=== PATIENT | female | born 1950 | race Caucasian/White ===

== ENCOUNTER 2017-05-29 16:57 | Emergency (ER) | payer OTHER ==
[~2017-05-29 16:57] MED LIST: LORazepam 2 MG/ML VIAL ONE
--- OUTSIDE RECORDS SUMMARY | 2017-05-29 16:59 | XMS REPORT | Clinical Summary ---
:[address] [facility] Address [address] [place] [address] Phone Care Team Providers Name Role Phone Unavailable Primary Care Provider Unavailable Allergies Active Allergy Reactions Severity Noted Date Comments Diphenhydramine Hcl Other (See Comments) High 08/29/2016 Unknown reaction Pentazocine Lactate Other (See Comments) High 08/29/2016 Hallucinations Current Medications Prescription Sig. Disp. Refills Start Date End Date Status atorvastatin Take 1 tablet 30 tablet 0 09/03/2016 09/03/2017 Active (LIPITOR) 10 MG (10 mg total) by tablet mouth nightly. acetaminophen-codeine Take 1 tablet by 30 tablet 0 09/03/2016 09/13/2016 (TYLENOL #3) 300-30 mouth every 4 mg per tablet (four) hours as needed for up to 10 days. Max Daily Amount: 6 tablets moxifloxacin (AVELOX) Take 1 tablet 10 tablet 0 09/03/2016 09/10/2016 400 mg tablet (400 mg total) by mouth daily for [address] 1 drop 3 mL 0 09/03/2016 09/10/2016 (VIGAMOX) 0.5 % into the right ophthalmic solution eye 6 (six) times daily for 7 days. Active Problems Problem Noted Date Eye infection, right 08/30/2016 Dementia 08/30/2016 Keratitis, right 08/30/2016 Hypokalemia 08/30/2016 Corneal ulcer, right 08/29/2016 Encounters Date Type Specialty Care Team Description 09/03/2016 Procedure Pass 09/03/2016 Surgery Timur Oconnor TARSORRHAPHY MD Alfredo 09/02/2016 Anesthesia Event Le Strickland MD 08/30/2016 Orders Only General Internal Medicine 08/29/2016 - Hospital Encounter General Internal Ajith Sanabria Corneal ulcer, right 09/04/2016 Oumou Edwards MD (Primary Dx);Dementia Shamsee, without behavioral Darryn-Germain disturbance, MD Ariel unspecified dementia Tien Salgado type;Eye infection, MD Parrish right;Hypokalemia;ayaka López hyperlipidemia Yashash-D after 05/28/2016 Social History Tobacco Use Types Packs/Day Years Used Date Former Smoker Alcohol Use Drinks/Week oz/Week Comments No Sex Assigned at Date Recorded Not on file Last Filed Vital Signs Vital Sign Reading Time Taken Blood Pressure 109/65 09/04/2016 11:31 AM CDT Pulse 69 09/04/2016 11:31 AM CDT Temperature 36.4 C (97.6 F) 09/04/2016 11:31 AM CDT Respiratory Rate 18 09/04/2016 11:31 AM CDT Oxygen Saturation 98% 09/04/2016 11:31 AM CDT Inhaled Oxygen Concentration - - Weight 47.7 kg (105 lb 3.2 oz) 09/04/2016 5:56 AM CDT Height 157.5 cm (5' 2") 08/29/2016 10:07 PM CDT Body Mass Index 19.24 09/04/2016 5:56 AM CDT Plan of Treatment Not on file Procedures Procedure Name Priority Date/Time Associated Diagnosis Comments TARSORRHAPHY 09/03/2016 12:53 PM CDT MICROBIAL KERATITIS Special Needs (REQ 1130) after 05/28/2016 Results CBC (Hemogram only) (09/04/2016 6:43 AM)Only the most recent of3 resultswithin the time period is included. Component Value Ref Range WBC 7.4 4.0 - 10.0 K/L RBC 3.78 (L) 4.00 - 5.00 M/L Hemoglobin 12.3 12.0 - 15.0 GM/DL Hematocrit 35.6 (L) 36.0 - 45.0 % MCV 94.2 82.0 - 99.0 fL MCH 32.6 27.0 - 33.0 pg MCHC 34.6 32.0 - 36.0 GM/DL RDW 11.3 10.3 - 14.2 % Platelets 327 150 - 430 K/CU MM MPV 5.5 (L) 6.5 - 10.5 fL nRBC 0 0 - 0 /100 WBC Specimen Performing Laboratory Blood - Arm, [address] [address] Narrative 0.00 Basic Metabolic Panel (09/04/2016 6:43 AM)Only the most recent of5 resultswithin the time period is included. Component Value Ref Range Sodium 139 136 - 145 meq/L Potassium 3.7 3.5 - 5.1 meq/L Chloride 104 98 - 107 meq/L CO2 28 22 - 29 meq/L BUN 11 7 - 21 mg/dL Creatinine 0.73 0.57 - 1.25 mg/dL Glucose 99 70 - 105 mg/dL Calcium 9.0 8.4 - 10.2 mg/dL EGFR 80Comment: ESTIMATED GFR IS NOT ACCURATE mL/min/1.73 sq m CREATININE CLEARANCE IN PREDICTING GLOMERULAR FILTRATION RATE. ESTIMATED GFR IS NOT APPLICABLE FOR DIALYSIS PATIENTS. Specimen Performing Laboratory Blood - Arm, [address] [address] TSH/Free T4 If Indicated (08/30/2016 5:15 AM) Component Value Ref Range TSH 1.73 0.35 - 4.94 uIU/mL Specimen Performing Laboratory Blood - Arm, [address] [address] C-Reactive Protein (08/30/2016 5:15 AM) Component Value Ref Range CRP 0.93 (H) 0.00 - 0.50 mg/dL Specimen Performing Laboratory Blood - Arm, [address] [address] CBC with platelet count + automated diff (08/30/2016 5:15 AM)Only the most recent of2 resultswithin the time period is included. Component Value Ref Range WBC 7.9 4.0 - 10.0 K/L RBC 4.23 4.00 - 5.00 M/L Hemoglobin 13.4 12.0 - 15.0 GM/DL Hematocrit 39.4 36.0 - 45.0 % MCV 93.0 82.0 - 99.0 fL MCH 31.8 27.0 - 33.0 pg MCHC 34.2 32.0 - 36.0 GM/DL RDW 11.3 10.3 - 14.2 % Platelets 433 (H) 150 - 430 K/CU MM MPV 5.5 (L) 6.5 - 10.5 fL nRBC 0 0 - 0 /100 WBC % Neutros 63 % % Lymphs 30 % % Monos 7 % % Eos 1 % % Baso 0 % # Neutros 4.91 1.80 - 8.00 K/L # Lymphs 2.32 1.48 - 4.50 K/L # Monos 0.53 0.00 - 1.30 K/L # Eos 0.07 0.00 - 0.50 K/L # Baso 0.02 0.00 - 0.20 K/L Specimen Performing Laboratory Blood - Arm, [address] [address] Narrative 0.00 Troponin I (08/30/2016 5:15 AM) Component Value Ref Range Troponin I <0.01 0.00 - 0.03 ng/mL Specimen Performing Laboratory Blood - Arm, [address] [address] Narrative Effective 01/03/2014: Reference Range Change New: 0.00-0.03 Previous 0.00-0.15 Troponin I (TnI) levels must be interpreted in the context of the presenting symptoms and the clinical findings. Elevated TnI levels indicate myocardial damage, but are not specific for ischemic heart disease. Elevated TnI levels are seen in patients with other cardiac conditions (including myocarditis and congestive heart failure), and slight TnI elevations occur in patients with other conditions, including sepsis, renal failure, acidosis, acute neurological disease, and persistent tachyarrhythmia. RPR (08/30/2016 5:15 AM) Component Value Ref Range RPR Nonreactive Nonreactive Specimen Performing Laboratory Blood - Arm, [address] [address] Sedimentation rate (08/30/2016 5:15 AM) Component Value Ref Range Sed Rate 36 0 - 40 mm/HR Specimen Performing Laboratory Blood - Arm, [address] [address] CBC with platelet count + automated diff (08/30/2016 5:15 AM)Only the most recent of2 resultswithin the time period is included. Specimen Performing Laboratory Blood Narrative The following orders were created for panel order CBC with platelet count + automated diff. Procedure Abnormality Status --------- ------ CBC with platelet count ...[[id number]]AbnormalFinal result Please view results for these tests on the individual orders. Phosphorus (08/30/2016 5:15 AM) Component Value Ref Range Phosphorus 2.7 2.3 - 4.7 mg/dL Specimen Performing Laboratory Blood - Arm, [address] [address] Magnesium (08/30/2016 5:15 AM) Component Value Ref Range Magnesium 2.1 1.6 - 2.6 mg/dL Specimen Performing Laboratory Blood - Arm, [address] [address] Hemoglobin A1c (08/30/2016 5:15 AM) Component Value Ref Range Hemoglobin A1C 5.6 4.3 - 6.1 % Specimen Performing Laboratory Blood - Arm, [address] [address] Vitamin B12 (08/30/2016 5:15 AM) Component Value Ref Range Vitamin B12 1205 (H) 213 - 816 pg/mL Specimen Performing Laboratory Blood - Arm, [address] [address] Creatine Kinase (CK), Total and MB (08/30/2016 5:15 AM) Component Value Ref Range Total CK 85 29 - 200 U/L CK-MB 1.2 0.0 - 6.6 ng/mL MB Relative Index 1.4 % Specimen Performing Laboratory Blood - Arm, [address] [address] Narrative Effective 01/03/2014: CK-MB Reference Range Change New: 0.0-6.6Previous: 0.0-4.9 CK-MB Reference Range: <6.7Normal 6.7-10.0Borderline >10.0 Abnormal Hepatic function panel (08/30/2016 5:15 AM) Component Value Ref Range Protein, Total 8.0 6.0 - 8.3 gm/dL Albumin 4.4 3.5 - 5.0 g/dL Total Bilirubin 0.7 0.2 - 1.2 mg/dL Bilirubin, Direct 0.3 0.1 - 0.5 mg/dL Alkaline Phosphatase 112 40 - 150 U/L AST 19 5 - 34 U/L ALT 11 6 - 55 U/L Specimen Performing Laboratory Blood - Arm, [facility] [address] [place] [id number] Lipid panel (08/30/2016 5:15 AM) Component Value Ref Range Triglycerides 79 mg/dL Cholesterol 244 mg/dL HDL 64 mg/dL LDL Calculated 164 mg/dL Specimen Performing Laboratory Blood - Arm, Right [facility] [address] [place] [address] Narrative Triglyceride Reference Range: Low Risk <150 [id number] High Risk 200-499 Very High Risk>=500 Cholesterol Reference Range: Low Risk <200 [id number] High Risk>240 HDL Cholesterol Reference Range: Low Risk >=60 High Risk <40 LDL Cholesterol Reference Range: Optimal<100 Near [id number] Very High >=190 ECG 12 lead (08/30/2016 1:16 AM) Specimen Performing Laboratory GE [facility]USE Narrative Ventricular Rate 75 BPM Atrial Rate 75 BPM P-R Interval 172 ms QRS Duration 84 ms Q-T Interval 412 ms QTC Calculation(Bazett) 460 ms P Webster 60 degrees R Webster 86 degrees T Webster 76 degrees Normal sinus rhythm T wave abnormality, consider anterior ischemia Abnormal ECG No previous ECGs available Confirmed by MD GASTON JORGE ([id number]) on 08/30/2016 11:38:24 AM Procedure Note Interface, External Ris In - 08/30/2016 11:38 AM CDT Ventricular Rate 75 BPM Atrial Rate 75 BPM P-R Interval 172 ms QRS Duration 84 ms Q-T Interval 412 ms QTC Calculation(Bazett) 460 ms P Webster 60 degrees R Webster 86 degrees T Webster 76 degrees Normal sinus rhythm T wave abnormality, consider anterior ischemia Abnormal ECG No previous ECGs available Confirmed by MD GASTON JORGE ([id number]) on 08/30/2016 11:38:24 AM after 05/28/2016
--- OUTSIDE RECORDS SUMMARY | 2017-05-29 16:59 | XMS REPORT | Clinical Summary ---
:1950 Author Organization [facility] Address [address] [place] [address] Care Team Providers Name Role Phone Asked, No Pcp Primary Care Provider Unavailable Allergies Not on File Current Medications Not on file Active Problems Not on file Encounters Date Type Specialty Care Team Description 08/30/2016 Lab Lab Araceli Weaver MD 08/29/2016 Lab Lab Timur Oconnor MD after 05/28/2016 Social History Tobacco Use Types Packs/Day Years Used Date Never Assessed Sex Assigned at Date Recorded Not on file Last Filed Vital Signs Not on file Plan of Treatment Health Maintenance Due Date Last Done Comments COLONOSCOPY 2000 MAMMOGRAM 2000 ZOSTER VACCINE 2010 PNEUMOCOCCAL POLYSACCHARIDE VACCINE AGE 65 AND OVER 06/30/2015 PNEUMOCOCCAL-13 06/30/2015 INFLUENZA VACCINE 09/16/2017 Results Acanthamoeba culture (08/29/2016 9:00 PM) Component Value Ref Range Acanthamoeba culture isolate Cancelled - No specimen received. Patient credited Comment: Specimen Information Specimen Source: Cornea Specimen Site: Right Eye Specimen Performing Laboratory Cornea [facility] DEPARTMENT OF PATHOLOGY AND GENOMIC MEDICINE [address] [place] [address] Eye culture, anaerobic (08/29/2016 9:00 PM)Only the most recent of2 resultswithin the time period is included. Component Value Ref Range Eye culture isolate, anaerobic Brucella blood agar: No anaerobes isolated after 7 days. Comment: Specimen Information Specimen Source: Cornea Specimen Site: Right Eye Specimen Performing Laboratory Cornea [facility] DEPARTMENT OF PATHOLOGY AND GENOMIC MEDICINE [address] [place] [address] Acridine orange stain (08/29/2016 9:00 PM)Only the most recent of2 resultswithin the time period is included. Component Value Ref Range Acridine orange stain No WBC's or organisms seen Comment: Specimen Information Specimen Source: Cornea Specimen Site: Right Eye Specimen Performing Laboratory Cornea [facility] DEPARTMENT OF PATHOLOGY AND GENOMIC MEDICINE [address] [place] [address] AFB culture (08/29/2016 9:00 PM) Component Value Ref Range AFB culture isolate No growth after 6 weeks of incubation. Comment: Specimen Information Specimen Source: Cornea Specimen Site: Right Eye Specimen Performing Laboratory Cornea [facility] DEPARTMENT OF PATHOLOGY AND [address] [address] Eye culture (08/29/2016 9:00 PM) Component Value Ref Range Eye culture isolate Chocolate agar: (A) Comment: Specimen Information Specimen Source: Cornea Specimen Site: Right Eye Eye culture isolate Staphylococcus aureus 1+ Growth first detected onBlood agar and Thioglycollateon day 1 Interpretations of the VERONICA values are based on serum and urine levels.Interpret results accordingly. Interpretations of the VERONICA values are based on serum and urine levels.Interpret results accordingly. (A) Eye culture isolate Bacillus cereus Recovered in Broth only: Growth first detected onThioglycollate brothon day 1 Interpretations of the VERONICA values are based on serum and urine levels.Interpret results accordingly. Interpretations of the VERONICA values are based on serum and urine levels.Interpret results accordingly. The performance characteristics of this assay on this isolate were validated by the Microbiology Laboratory at [facility].This source has not been approved by the U.S. Food and Drug Administration.The results are not intended to be used as the sole means for clinical diagnosis or patient management.The Microbiology Laboratory is authorized under the clinical Laboratory Improvement Amendments of 1988 (CLIA-88) to perform high complexity testing. (A) Eye culture isolate Propionibacterium acnes 1+ Growth first detected onChocolate agaron day 5 Interpretations of the VERONICA values are based on serum and urine levels.Interpret results accordingly. Interpretations of the VERONICA values are based on serum and urine levels.Interpret results accordingly. (A) Specimen Performing Laboratory Cornea [facility] DEPARTMENT OF PATHOLOGY AND GENOMIC MEDICINE [address] [place] [address] Organism Antibiotic Method Susceptibility Staphylococcus aureus Ampicillin BP 64 mcg/mL Staphylococcus aureus Erythromycin BP 32 mcg/mL: Resistant Staphylococcus aureus Oxacillin BP 36 mcg/mL: Resistant Staphylococcus aureus Penicillin G BP 32 mcg/mL: Resistant Staphylococcus aureus Vancomycin BP 1.0 mcg/mL: Susceptible Staphylococcus aureus Azithromycin BP >256 mcg/mL: Resistant Staphylococcus aureus Ciprofloxacin BP 0.50 mcg/mL: Susceptible Staphylococcus aureus Ofloxacin BP 0.50 mcg/mL: Susceptible Staphylococcus aureus Tobramycin BP 0.19 mcg/mL: Susceptible Bacillus cereus Ampicillin BP 64 mcg/mL: Resistant Bacillus cereus Vancomycin BP 3 mcg/mL Bacillus cereus Azithromycin BP 12 mcg/mL Bacillus cereus Ciprofloxacin BP 0.25 mcg/mL Bacillus cereus Moxifloxacin BP 0.19 mcg/mL Bacillus cereus Ofloxacin BP 0.38 mcg/mL Gram stain (08/29/2016 9:00 PM) Component Value Ref Range Gram stain isolate Rare WBC's Rare Gram positive cocci in pairs Comment: Specimen Information Specimen Source: Cornea Specimen Site: Right Eye Specimen Performing Laboratory Cornea [facility] DEPARTMENT OF PATHOLOGY AND GENOMIC MEDICINE [address] [place] [address] AFB stain (08/29/2016 9:00 PM)Only the most recent of2 resultswithin the time period is included. Component Value Ref Range AFB stain No acid fast bacilli (AFB) seen. Comment: Specimen Information Specimen Source: Cornea Specimen Site: Right Eye Specimen Performing Laboratory Cornea [facility] DEPARTMENT OF PATHOLOGY AND GENOMIC MEDICINE [address] [place] [address] Fungus culture (08/29/2016 9:00 PM) Component Value Ref Range Fungus culture isolate No growth after 4 weeks of incubation. Comment: Specimen Information Specimen Source: Cornea Specimen Site: Right Eye Specimen Performing Laboratory Cornea [facility] DEPARTMENT OF PATHOLOGY AND GENOMIC MEDICINE [address] [place] [address] after 05/28/2016 Insurance Payer Benefit Plan / Group Subscriber ID Type Phone Address MEDICARE MEDICARE PART A AND B xxxxxxxxxx Medicare [place], [place] DESEAN ANTON PPO xxxxxxxxxxx PPO Home: [facility] [place]LLIN AMITY [phone] [address]
--- OUTSIDE RECORDS SUMMARY | 2017-05-29 17:00 | XMS REPORT ---
:1950 [facility] Organization [facility] Address [address] [place] [address] Dr. Bassett. [address] [place] [id number] Care Team Providers Name Role Phone René APPLEAndrew MIRELA Unavailable Unavailable Problems This patient has no known problems. Allergies, Adverse Reactions, Alerts This patient has no known allergies or adverse reactions. Medications This patient has no known medications. Results Test Description Test Time Test Comments Text Results Atomic Results Result Comments BASIC METABOLIC PANEL 2016-09-04 08:00:00 Test Item Value Reference Range Comments SODIUM (BEAKER) (test 139 meq/L 136-145 gono=860) POTASSIUM (BEAKER) (test 3.7 meq/L 3.5-5.1 obah=975) CHLORIDE (BEAKER) (test 104 meq/L 98-107 mhjl=573) CO2 (BEAKER) (test dpsu=342) 28 meq/L 22-29 BLOOD UREA NITROGEN (BEAKER) 11 mg/dL 7-21 (test kmzc=423) CREATININE (BEAKER) (test 0.73 mg/dL 0.57-1.25 tubo=103) GLUCOSE RANDOM (BEAKER) 99 mg/dL 70-105 (test iipe=385) CALCIUM (BEAKER) (test 9.0 mg/dL 8.4-10.2 hetj=958) EGFR (BEAKER) (test 80 mL/min/1.73 sq m ESTIMATED GFR IS NOT yhng=7078) ACCURATE CREATININE CLEARANCE IN PREDICTING GLOMERULAR FILTRATION RATE. ESTIMATED GFR IS NOT APPLICABLE FOR DIALYSIS PATIENTS. CBC (HEMOGRAM ONLY)2016-09-04 07:16:00 Test Item Value Reference Range Comments WHITE BLOOD CELL COUNT (BEAKER) (test pbth=465) 7.4 K/ L 4.0-10.0 RED BLOOD CELL COUNT (BEAKER) (test qusy=087) 3.78 M/ L 4.00-5.00 HEMOGLOBIN (BEAKER) (test fkfn=516) 12.3 GM/DL 12.0-15.0 HEMATOCRIT (BEAKER) (test iwyl=872) 35.6 % 36.0-45.0 MEAN CORPUSCULAR VOLUME (BEAKER) (test bwpj=706) 94.2 fL 82.0-99.0 MEAN CORPUSCULAR HEMOGLOBIN (BEAKER) (test 32.6 pg 27.0-33.0 zgbs=888) MEAN CORPUSCULAR HEMOGLOBIN CONC (BEAKER) (test 34.6 GM/DL 32.0-36.0 mffu=808) RED CELL DISTRIBUTION WIDTH (BEAKER) (test 11.3 % 10.3-14.2 jkqy=038) PLATELET COUNT (BEAKER) (test gcan=742) 327 K/CU MM 150-430 MEAN PLATELET VOLUME (BEAKER) (test kaqq=087) 5.5 fL 6.5-10.5 NUCLEATED RED BLOOD CELLS (BEAKER) (test 0 /100 WBC 0-0 hjzf=129) 0.00CBC (HEMOGRAM ONLY)2016-09-03 07:52:00 Test Item Value Reference Range Comments WHITE BLOOD CELL COUNT (BEAKER) (test fvgq=572) 6.1 K/ L 4.0-10.0 RED BLOOD CELL COUNT (BEAKER) (test sbxg=999) 4.10 M/ L 4.00-5.00 HEMOGLOBIN (BEAKER) (test azbj=381) 12.7 GM/DL 12.0-15.0 HEMATOCRIT (BEAKER) (test llvm=195) 38.0 % 36.0-45.0 MEAN CORPUSCULAR VOLUME (BEAKER) (test bnop=167) 92.8 fL 82.0-99.0 MEAN CORPUSCULAR HEMOGLOBIN (BEAKER) (test 30.9 pg 27.0-33.0 tvmn=579) MEAN CORPUSCULAR HEMOGLOBIN CONC (BEAKER) (test 33.3 GM/DL 32.0-36.0 diym=092) RED CELL DISTRIBUTION WIDTH (BEAKER) (test 13.0 % 10.3-14.2 npup=312) PLATELET COUNT (BEAKER) (test wnvx=791) 356 K/CU MM 150-430 MEAN PLATELET VOLUME (BEAKER) (test cidh=789) 5.9 fL 6.5-10.5 NUCLEATED RED BLOOD CELLS (BEAKER) (test 0 /100 WBC 0-0 qtwq=354) 0.00BASIC METABOLIC [id number] 07:14:00 Test Item Value Reference Range Comments SODIUM (BEAKER) (test 141 meq/L 136-145 fnfg=260) POTASSIUM (BEAKER) (test 3.7 meq/L 3.5-5.1 prdz=284) CHLORIDE (BEAKER) (test 105 meq/L 98-107 dahw=003) CO2 (BEAKER) (test 28 meq/L 22-29 ulcx=148) BLOOD UREA NITROGEN 10 mg/dL 7-21 (BEAKER) (test ujzb=160) CREATININE (BEAKER) (test 0.69 mg/dL 0.57-1.25 uopo=076) GLUCOSE RANDOM (BEAKER) 100 mg/dL 70-105 (test ncfn=650) CALCIUM (BEAKER) (test 9.7 mg/dL 8.4-10.2 dgzc=391) EGFR (BEAKER) (test 85 mL/min/1.73 sq m ESTIMATED GFR IS NOT hohd=3143) ACCURATE CREATININE CLEARANCE IN PREDICTING GLOMERULAR FILTRATION RATE. ESTIMATED GFR IS NOT APPLICABLE FOR DIALYSIS PATIENTS. BASIC METABOLIC [id number] 07:55:00 Test Item Value Reference Range Comments SODIUM (BEAKER) (test 140 meq/L 136-145 kcow=564) POTASSIUM (BEAKER) (test 3.8 meq/L 3.5-5.1 ukdu=477) CHLORIDE (BEAKER) (test 106 meq/L 98-107 jkdl=531) CO2 (BEAKER) (test 24 meq/L 22-29 itmm=550) BLOOD UREA NITROGEN 12 mg/dL 7-21 (BEAKER) (test eqba=682) CREATININE (BEAKER) (test 0.68 mg/dL 0.57-1.25 okei=723) GLUCOSE RANDOM (BEAKER) 97 mg/dL 70-105 (test bkis=440) CALCIUM (BEAKER) (test 9.3 mg/dL 8.4-10.2 dncd=835) EGFR (BEAKER) (test 87 mL/min/1.73 sq m ESTIMATED GFR IS NOT vijx=8722) ACCURATE CREATININE CLEARANCE IN PREDICTING GLOMERULAR FILTRATION RATE. ESTIMATED GFR IS NOT APPLICABLE FOR DIALYSIS PATIENTS. CBC (HEMOGRAM ONLY)2016-09-02 07:46:00 Test Item Value Reference Range Comments WHITE BLOOD CELL COUNT (BEAKER) (test stzk=246) 6.6 K/ L 4.0-10.0 RED BLOOD CELL COUNT (BEAKER) (test spny=040) 4.04 M/ L 4.00-5.00 HEMOGLOBIN (BEAKER) (test vwbf=726) 12.8 GM/DL 12.0-15.0 HEMATOCRIT (BEAKER) (test qkzw=612) 38.2 % 36.0-45.0 MEAN CORPUSCULAR VOLUME (BEAKER) (test issn=119) 94.5 fL 82.0-99.0 MEAN CORPUSCULAR HEMOGLOBIN (BEAKER) (test 31.7 pg 27.0-33.0 scrq=648) MEAN CORPUSCULAR HEMOGLOBIN CONC (BEAKER) (test 33.6 GM/DL 32.0-36.0 vldk=371) RED CELL DISTRIBUTION WIDTH (BEAKER) (test 11.4 % 10.3-14.2 wmnu=828) PLATELET COUNT (BEAKER) (test snus=492) 380 K/CU MM 150-430 MEAN PLATELET VOLUME (BEAKER) (test ugxh=336) 5.5 fL 6.5-10.5 NUCLEATED RED BLOOD CELLS (BEAKER) (test 0 /100 WBC 0-0 genh=666) [id number] 11:31:00 Test Item Value Reference Range Comments RPR SCREEN (BEAKER) (test jsmy=793) Nonreactive Nonreactive SEDIMENTATION [id number] 10:14:00 Test Item Value Reference Range Comments SEDIMENTATION RATE, ERYTHROCYTE (BEAKER) (test 36 mm/HR 0-40 djft=127) HEMOGLOBIN [id number] 09:41:00 Test Item Value Reference Range Comments HEMOGLOBIN A1C (BEAKER) (test cagc=106) 5.6 % 4.3-6.1 C-REACTIVE [id number] 09:01:00 Test Item Value Reference Range Comments C-REACTIVE PROTEIN (BEAKER) (test rkpb=002) 0.93 mg/dL 0.00-0.50 CBC W/PLT COUNT & AUTO [id number] 06:46:00 Test Item Value Reference Range Comments WHITE BLOOD CELL COUNT (BEAKER) (test iakf=273) 7.9 K/ L 4.0-10.0 RED BLOOD CELL COUNT (BEAKER) (test bwcu=485) 4.23 M/ L 4.00-5.00 HEMOGLOBIN (BEAKER) (test wflt=759) 13.4 GM/DL 12.0-15.0 HEMATOCRIT (BEAKER) (test wtzo=778) 39.4 % 36.0-45.0 MEAN CORPUSCULAR VOLUME (BEAKER) (test newx=112) 93.0 fL 82.0-99.0 MEAN CORPUSCULAR HEMOGLOBIN (BEAKER) (test 31.8 pg 27.0-33.0 sxwv=725) MEAN CORPUSCULAR HEMOGLOBIN CONC (BEAKER) (test 34.2 GM/DL 32.0-36.0 eaps=048) RED CELL DISTRIBUTION WIDTH (BEAKER) (test 11.3 % 10.3-14.2 npzu=517) PLATELET COUNT (BEAKER) (test poud=035) 433 K/CU MM 150-430 MEAN PLATELET VOLUME (BEAKER) (test arcv=977) 5.5 fL 6.5-10.5 NUCLEATED RED BLOOD CELLS (BEAKER) (test 0 /100 WBC 0-0 sxxb=691) NEUTROPHILS RELATIVE PERCENT (BEAKER) (test 63 % zobp=312) LYMPHOCYTES RELATIVE PERCENT (BEAKER) (test 30 % tjqn=014) MONOCYTES RELATIVE PERCENT (BEAKER) (test 7 % ayoq=940) EOSINOPHILS RELATIVE PERCENT (BEAKER) (test 1 % pjau=013) BASOPHILS RELATIVE PERCENT (BEAKER) (test 0 % hpxs=168) NEUTROPHILS ABSOLUTE COUNT (BEAKER) (test 4.91 K/ L 1.80-8.00 ltos=047) LYMPHOCYTES ABSOLUTE COUNT (BEAKER) (test 2.32 K/ L 1.48-4.50 cblk=530) MONOCYTES ABSOLUTE COUNT (BEAKER) (test 0.53 K/ L 0.00-1.30 abvx=563) EOSINOPHILS ABSOLUTE COUNT (BEAKER) (test 0.07 K/ L 0.00-0.50 vbny=180) BASOPHILS ABSOLUTE COUNT (BEAKER) (test 0.02 K/ L 0.00-0.20 bosc=727) 0.00VITAMIN [id number] 06:33:00 Test Item Value Reference Range Comments VITAMIN B12 (BEAKER) (test pvay=033) 1205 pg/mL 213-816 TSH/FREE T4 IF [id number] 06:33:00 Test Item Value Reference Range Comments THYROID STIMULATING HORMONE (BEAKER) (test 1.73 uIU/mL 0.35-4.94 bcof=685) [id number] 06:28:00 Test Item Value Reference Range Comments PHOSPHORUS (BEAKER) (test plsd=372) 2.7 mg/dL 2.3-4.7 [id number] 06:28:00 Test Item Value Reference Range Comments MAGNESIUM (BEAKER) (test hmpp=754) 2.1 mg/dL 1.6-2.6 BASIC METABOLIC [id number] 06:28:00 Test Item Value Reference Range Comments SODIUM (BEAKER) (test 141 meq/L 136-145 tfml=493) POTASSIUM (BEAKER) (test 3.2 meq/L 3.5-5.1 tbjc=297) CHLORIDE (BEAKER) (test 103 meq/L 98-107 iouy=457) CO2 (BEAKER) (test 26 meq/L 22-29 vcev=525) BLOOD UREA NITROGEN 19 mg/dL 7-21 (BEAKER) (test baij=643) CREATININE (BEAKER) (test 0.68 mg/dL 0.57-1.25 fpzs=318) GLUCOSE RANDOM (BEAKER) 87 mg/dL 70-105 (test jgge=203) CALCIUM (BEAKER) (test 9.7 mg/dL 8.4-10.2 xvyb=518) EGFR (BEAKER) (test 87 mL/min/1.73 sq m ESTIMATED GFR IS NOT dcbg=8652) ACCURATE CREATININE CLEARANCE IN PREDICTING GLOMERULAR FILTRATION RATE. ESTIMATED GFR IS NOT APPLICABLE FOR DIALYSIS PATIENTS. LIPID [id number] 06:28:00 Test Item Value Reference Range Comments TRIGLYCERIDES (BEAKER) (test pbmc=759) 79 mg/dL CHOLESTEROL (BEAKER) (test pnwd=398) 244 mg/dL HDL CHOLESTEROL (BEAKER) (test vdyz=293) 64 mg/dL LDL CHOLESTEROL CALCULATED (BEAKER) (test 164 mg/dL aibz=069) Triglyceride Reference Range: Low Risk <150 Borderline 150- 199 High Risk 200-499 Very High Risk >=500Cholesterol Reference Range: Low Risk <200 Borderline 200-239 High Risk > 240HDL Cholesterol Reference Range: Low Risk >=60 High Risk <40LDL Cholesterol Reference Range: Optimal <100 Near Optimal 100-129 Borderline 130-159 High 160-189 Very High >=190HEPATIC FUNCTION [id number] 06:28:00 Test Item Value Reference Range Comments TOTAL PROTEIN (BEAKER) (test ypqm=624) 8.0 gm/dL 6.0-8.3 ALBUMIN (BEAKER) (test tscl=7153) 4.4 g/dL 3.5-5.0 BILIRUBIN TOTAL (BEAKER) (test dvqt=790) 0.7 mg/dL 0.2-1.2 BILIRUBIN DIRECT (BEAKER) (test xhsq=859) 0.3 mg/dL 0.1-0.5 ALKALINE PHOSPHATASE (BEAKER) (test hesx=120) 112 U/L 40-150 AST (SGOT) (BEAKER) (test vfxi=828) 19 U/L 5-34 ALT (SGPT) (BEAKER) (test qqke=785) 11 U/L 6-55 CREATINE KINASE (CK), TOTAL AND [id number] 06:28:00 Test Item Value Reference Range Comments CREATINE KINASE TOTAL (BEAKER) (test gddw=342) 85 U/L 29-200 CREATINE KINASE-MB (BEAKER) (test xwxn=655) 1.2 ng/mL 0.0-6.6 CREATINE KINASE-MB INDEX (BEAKER) (test mtmu=149) 1.4 % Effective 01/03/2014: CK-MB Reference Range ChangeNew: 0.0-6.6 Previous: 0.0- 4.9CK-MB Reference Range:<6.7 Normal6.7-10.0 Borderline>10.0 AbnormalTROPONIN [id number] 06:11:00 Test Item Value Reference Range Comments TROPONIN I (BEAKER) (test hwfj=491) < ng/mL 0.00-0.03 Effective 01/03/2014: Reference Range ChangeNew: 0.00-0.03 Previous 0.00- 0.15Troponin I (TnI) levels must be interpreted in the context of the presenting symptoms and the clinical findings. Elevated TnI levels indicate myocardial damage, but are not specific for ischemic heart disease. Elevated TnI levels are seen in patients with other cardiac conditions (including myocarditis and congestive heartfailure), and slight TnI elevations occur in patients with other conditions, including sepsis, renalfailure, acidosis, acute neurological disease, and persistent tachyarrhythmia.BASIC METABOLIC [id number] 00:40:00 Test Item Value Reference Range Comments SODIUM (BEAKER) (test 139 meq/L 136-145 cedw=962) POTASSIUM (BEAKER) (test 3.0 meq/L 3.5-5.1 evmo=953) CHLORIDE (BEAKER) (test 103 meq/L 98-107 ilus=340) CO2 (BEAKER) (test 26 meq/L 22-29 jsfj=538) BLOOD UREA NITROGEN 19 mg/dL 7-21 (BEAKER) (test hhar=767) CREATININE (BEAKER) (test 0.71 mg/dL 0.57-1.25 buar=998) GLUCOSE RANDOM (BEAKER) 95 mg/dL 70-105 (test atkj=881) CALCIUM (BEAKER) (test 9.4 mg/dL 8.4-10.2 lqlz=658) EGFR (BEAKER) (test mL/min/1.73 sq m INSUFFICIENT CLINICAL DATA pcwp=5164) TO CALCULATE ESTIMATED GFR. CBC W/PLT COUNT & AUTO [id number] 23:58:00 Test Item Value Reference Range Comments WHITE BLOOD CELL COUNT (BEAKER) (test pqnt=720) 8.6 K/ L 4.0-10.0 RED BLOOD CELL COUNT (BEAKER) (test bzqh=630) 4.15 M/ L 4.00-5.00 HEMOGLOBIN (BEAKER) (test aqnn=562) 12.9 GM/DL 12.0-15.0 HEMATOCRIT (BEAKER) (test zkmu=263) 38.7 % 36.0-45.0 MEAN CORPUSCULAR VOLUME (BEAKER) (test xryv=394) 93.2 fL 82.0-99.0 MEAN CORPUSCULAR HEMOGLOBIN (BEAKER) (test 31.1 pg 27.0-33.0 vyva=179) MEAN CORPUSCULAR HEMOGLOBIN CONC (BEAKER) (test 33.4 GM/DL 32.0-36.0 nbxc=577) RED CELL DISTRIBUTION WIDTH (BEAKER) (test 11.3 % 10.3-14.2 xghq=233) PLATELET COUNT (BEAKER) (test cdzm=362) 427 K/CU MM 150-430 MEAN PLATELET VOLUME (BEAKER) (test dbdr=511) 5.4 fL 6.5-10.5 NUCLEATED RED BLOOD CELLS (BEAKER) (test 0 /100 WBC 0-0 pwxe=961) NEUTROPHILS RELATIVE PERCENT (BEAKER) (test 64 % xxkg=032) LYMPHOCYTES RELATIVE PERCENT (BEAKER) (test 28 % iztm=932) MONOCYTES RELATIVE PERCENT (BEAKER) (test 7 % evoq=675) EOSINOPHILS RELATIVE PERCENT (BEAKER) (test 1 % euxm=789) BASOPHILS RELATIVE PERCENT (BEAKER) (test 0 % aoya=007) NEUTROPHILS ABSOLUTE COUNT (BEAKER) (test 5.49 K/ L 1.80-8.00 yjpo=808) LYMPHOCYTES ABSOLUTE COUNT (BEAKER) (test 2.40 K/ L 1.48-4.50 rhrc=233) MONOCYTES ABSOLUTE COUNT (BEAKER) (test 0.57 K/ L 0.00-1.30 pvdf=791) EOSINOPHILS ABSOLUTE COUNT (BEAKER) (test 0.05 K/ L 0.00-0.50 rxuw=486) BASOPHILS ABSOLUTE COUNT (BEAKER) (test 0.04 K/ L 0.00-0.20 sxzp=959) 0.00
--- NOTE | 2017-05-29 17:47 | RAD REPORT ---
EXAM DESCRIPTION: RAD - Hand Left 3 View - 05/29/2017 5:37 pm CLINICAL HISTORY: Third digit pain. COMPARISON: None. FINDINGS: Prominent osteopenia is seen. Three screws are present at the distal fourth metacarpal. Mo derate degenerative changes at the radiocarpal joint. No acute fracture is present.
--- NOTE | 2017-05-29 17:48 | ER ---
Nurse's Notes [facility] Name: Iliana Bennett Age: 66 yrs Sex: Female : 1950 Arrival Date: 05/29/2017 Time: 17:02 Bed 4 Private MD: Diagnosis: Dislocation of proximal interphalangeal joint of left middle finger Presentation: 05/29 17:03 Presenting complaint: EMS states: "Faculty at [facility] reported pt had a jl7 seizure at 1000 this morning, was postictal all day then had another seizure prior to calling us.". Transition of care: patient was received from another setting of care (long-term care facility), [facility]. Onset of symptoms was May 29, 2017. Care prior to arrival: Medication(s) given: Normal saline infusion, 1000 mL, IV initiated. 20 GA, in the right forearm, Glucose check: 153. 17:03 Method Of Arrival: EMS: [facility] jl7 17:03 Acuity: MARIJA 3 jl7 Triage Assessment: 17:10 General: Appears in no apparent distress. uncomfortable, Behavior is anxious. Pain: jl7 Complains of pain in left middle finger. EENT: No signs and/or symptoms were reported regarding the EENT system. Neuro: Level of Consciousness is awake, Oriented to person. Cardiovascular: Patient's skin is warm and dry. Respiratory: Airway is patent Respiratory effort is even, unlabored, Respiratory pattern is regular, symmetrical. GI: No signs and/or symptoms were reported involving the gastrointestinal system. : No signs and/or symptoms were reported regarding the genitourinary system. Derm: Skin is pink, warm \\T\\ dry. Historical: - Allergies: 17:10 Benadryl; jl7 17:10 Ativan; jl7 17:10 Talwin NX; jl7 - Home Meds: 17:10 Keppra 500 mg Oral tab [Active]; magnesium oxide 400 mg Oral cap [Active]; melatonin 3 jl7 mg Oral tab [Active]; - PMHx: 17:10 Dementia; Seizures; Hyperlipidemia; jl7 - Immunization history:: Adult Immunizations unknown. - Social history:: Smoking status: unknown. Screenin:16 Abuse screen: Denies threats or abuse. Denies injuries from another. Nutritional jl7 screening: No deficits noted. Tuberculosis screening: No symptoms or risk factors identified. Fall Risk Fall in past 12 months (25 points). Secondary diagnosis (15 points) seizures, dementia, IV access (20 points). Ambulatory Aid- None/Bed Rest/Nurse Assist (0 pts). Gait- Impaired (20 pts.). Mental Status- Overestimates/Forgets Limitations (15 pts.). Total Pepe Fall Scale indicates High Risk Score (45 or more points). Fall prevention measures have been instituted. Side Rails Up X 2 Placed Close to Nursing Station Frequent Obs/Assessments Occuring Family Present and informed to notify staff if the need to leave the bedside As available patient and family educated on Fall Prevention Program and Strategies. Assessment: 17:13 General: See triage assessment. jl7 17:15 Reassessment: Pt's putty glazer at bedside and reports pt is at baseline after seizure. jl7 18:08 Reassessment: Patient appears in no apparent distress at this time. Patient and/or sv family updated on plan of care and expected duration. Pain level reassessed. Archana REES at [facility] has already called for transportation for pt to return. Patient states symptoms have improved. 18:36 Reassessment: Patient appears in no apparent distress at this time. Patient and/or sv family updated on plan of care and expected duration. Pain level reassessed. Vital Signs: 17:10 BP 145 / 72; Pulse 92; Resp 16 S; Pulse Ox 96% on R/A; jl7 18:09 BP 123 / 74; Pulse 74; Resp 18; Pulse Ox 97% ; sv [place] Coma Score: 17:10 Eye Response: spontaneous(4). Verbal Response: confused(4). Motor Response: localizes jl pain(5). Total: 13. ED Course: 17:02 Patient arrived in ED. jl7 17:03 Simone Ann PA is PHCP. jr8 17:03 Wicho Valverde MD is Attending Physician. jr8 17:05 Triage completed. jl7 17:08 Assist provider with reduction of left left middle finger using manipulation, Performed sv by Simone COOPER Immobilized with finger splint. 17:10 Arm band placed on right wrist. jl7 17:16 Maintain EMS IV. Dressing intact. Good blood return noted. Site clean \\T\\ dry. Gauge \\T\\ jl 7 site: 20 Left FA. 17:16 Patient has correct armband on for positive identification. Bed in low position. Call jl7 light in reach. Side rails up X2. Adult w/ patient. Seizure precautions initiated. Pulse ox on. NIBP on. Warm blanket given. 17:33 X-ray completed. Portable x-ray completed in exam room. Patient tolerated procedure mh1 well. 17:34 XRAY Hand LEFT 3 View In Process Unspecified. EDMS 17:55 Nerissa Buck, RN is Primary Nurse. jl7 18:36 IV discontinued, intact, bleeding controlled, No redness/swelling at site. Pressure sv dressing applied. Administered Medications: No medications were administered Outcome: 17:47 Discharge ordered by MD. melendez 18:07 Discharged to long term. Report called to Archana Singh at [facility] sv Transfer form completed. 18:07 Condition: stable 18:07 Discharge instructions given to long term, Instructed on discharge instructions, follow up and referral plans. Demonstrated understanding of instructions, follow-up care. 18:36 Patient left the ED. sv Signatures: Dispatcher [employer] EDMD Ny Cervantes, RN RN sv Trinidad Velazquez [facility] Simone Ann, ALLISON COOPER jrNerissa Au, RN RN jl7 Corrections: (The following items were deleted from the chart) 18:08 18:08 Patient did not have IV access during this emergency room visit. sv sv
--- NOTE | 2017-05-29 17:48 | EDPHYS ---
Physician Documentation [facility] Name: Iliana Bennett Age: 66 yrs Sex: Female : 1950 Arrival Date: 05/29/2017 Time: 17:02 Bed 4 Private MD: ED Physician Wicho Valverde HPI: 05/29 17:31 This 66 yrs old Female presents to ER via EMS with complaints of dislocated jr8 finger. 17:42 The patient or guardian reports decreased range of motion, deformity, pain. The jr8 complaints affect the PIP of left middle finger. Context: The problem was sustained at a detention or assisted living facility, resulted from a fall. Onset: The symptoms/episode began/occurred acutely, today. Modifying factors: The symptoms are alleviated by nothing, the symptoms are aggravated by movement. Associated signs and symptoms: The patient has no apparent associated signs or symptoms. Severity of symptoms: At their worst the symptoms were mild, in the emergency department the symptoms are unchanged. The patient has not experienced similar symptoms in the past. The patient has not recently seen a physician. Caregiver stated that she had a couple of seizures today. History of seizures. On one of them dislocated left middle finger. Had outpatient imaging completed today. Came via EMS for reduction . Historical: - Allergies: 17:10 Benadryl; jl7 17:10 Ativan; jl7 17:10 Talwin NX; jl7 - Home Meds: 17:10 Keppra 500 mg Oral tab [Active]; magnesium oxide 400 mg Oral cap [Active]; melatonin 3 jl7 mg Oral tab [Active]; - PMHx: 17:10 Dementia; Seizures; Hyperlipidemia; jl7 - Immunization history:: Adult Immunizations unknown. - Social history:: Smoking status: unknown. ROS: 17:42 Eyes: Negative for injury, pain, redness, and discharge, ENT: Negative for injury, jr8 pain, and discharge, Neck: Negative for injury, pain, and swelling, Cardiovascular: Negative for chest pain, palpitations, and edema, Respiratory: Negative for shortness of breath, cough, wheezing, and pleuritic chest pain, Abdomen/GI: Negative for abdominal pain, nausea, vomiting, diarrhea, and constipation, Back: Negative for injury and pain, Skin: Negative for injury, rash, and discoloration. 17:42 MS/extremity: Positive for injury or acute deformity, decreased range of motion, pain, of the PIP of left middle finger. 17:42 Neuro: Positive for seizure activity. Exam: 17:42 Head/Face: Normocephalic, atraumatic. Eyes: Pupils equal round and reactive to light, jr8 extra-ocular motions intact. Lids and lashes normal. Conjunctiva and sclera are non-icteric and not injected. Cornea within normal limits. Periorbital areas with no swelling, redness, or edema. ENT: Nares patent. No nasal discharge, no septal abnormalities noted. Tympanic membranes are normal and external auditory canals are clear. Oropharynx with no redness, swelling, or masses, exudates, or evidence of obstruction, uvula midline. Mucous membranes moist. Neck: Trachea midline, no thyromegaly or masses palpated, and no cervical lymphadenopathy. Supple, full range of motion without nuchal rigidity, or vertebral point tenderness. No Meningismus. Cardiovascular: Regular rate and rhythm with a normal S1 and S2. No gallops, murmurs, or rubs. Normal PMI, no JVD. No pulse deficits. Respiratory: Lungs have equal breath sounds bilaterally, clear to auscultation and percussion. No rales, rhonchi or wheezes noted. No increased work of breathing, no retractions or nasal flaring. Abdomen/GI: Soft, non-tender, with normal bowel sounds. No distension or tympany. No guarding or rebound. No evidence of tenderness throughout. Back: No spinal tenderness. No costovertebral tenderness. Full range of motion. Skin: Warm, dry with normal turgor. Normal color with no rashes, no lesions, and no evidence of cellulitis. 17:42 Musculoskeletal/extremity: Extremities: grossly normal except: noted in the PIP of left middle finger: decreased ROM, deformity, pain, Circulation is intact in all extremities. Sensation intact. 17:42 Neuro: Orientation: to person, Mentation: slow to respond, Memory: immediate memory is intact, remote memory is impaired, recent memory is impaired, Cranial nerves: CN I not tested, CN II- XII are normal as tested, extraocular movements are intact, Facial palsy and sensory deficits are absent. Speech is clear and appropriate. Tongue strength is normal, Motor: moves all fours, Sensation: no obvious gross deficits, seizure activity, is not displayed by the patient. Vital Signs: 17:10 BP 145 / 72; Pulse 92; Resp 16 S; Pulse Ox 96% on R/A; jl7 18:09 BP 123 / 74; Pulse 74; Resp 18; Pulse Ox 97% ; sv [place] Coma Score: 17:10 Eye Response: spontaneous(4). Verbal Response: confused(4). Motor Response: localizes jl7 pain(5). Total: 13. Procedures: 17:42 Reduction: of the PIP of left middle finger, using traction, Immobilized with finger jr8 splint, Patient tolerated well. Post reduction film - reveals normal alignment. MDM: 17:03 Patient medically screened. jr8 17:42 Data reviewed: vital signs, nurses notes, radiologic studies, plain films, and as a jr8 result, I will discharge patient. Data interpreted: Pulse oximetry: on room air is 96 %. Interpretation: normal. Counseling: I had a detailed discussion with the patient and/or guardian regarding: the historical points, exam findings, and any diagnostic results supporting the discharge/admit diagnosis, radiology results, the need for outpatient follow up, a family practitioner, a orthopedic surgeon, to return to the emergency department if symptoms worsen or persist or if there are any questions or concerns that arise at home. ED course: caregiver stated that patients mental status that she exhibits currently is baseline for her. No other abnormalities seen. Reduction successful. Will send back to [place] to f/u with PCP . 05/29 17:07 Order name: XRAY Hand LEFT 3 View; Complete Time: 17:48 jr8 Administered Medications: No medications were administered Disposition: 05/29/17 17:47 Discharged to Home. Impression: Dislocation of proximal interphalangeal joint of left middle finger. - Condition is Stable. - Discharge Instructions: Finger Dislocation. - Medication Reconciliation Form, Thank You Letter, Antibiotic Education, Prescription Opioid Use form. - Follow up: Private Physician; When: 2 - 3 days; Reason: Recheck today's complaints, Continuance of care, Re-evaluation by your physician. - Problem is new. - Symptoms are resolved. Addendum: 06/01/2017 07:52 Co-signature as Attending Physician, Wicho Valverde MD I agree with the assessment and w a plan of care. Signatures: Dispatcher [employer] Ny Fields RN RN Simone Barger PA PA jr8 Nerissa Buck, RN RN jl7 Wicho Valverde MD MD wa
[2017-05-29 18:42] VITALS: BP 123/74; O2SAT 97
== END 2017-05-29 18:36 | disposition home or self-care (01) ==
LOC: ER 16:57
DX: S63.283A Dislocation of proximal interphalangeal joint of left middle finger, initial encounter (principal); R56.9 Unspecified convulsions; E78.5 Hyperlipidemia, unspecified; W22.8XXA Striking against or struck by other objects, initial encounter; Y93.89 Activity, other specified; Y92.122 Bedroom in nursing home as the place of occurrence of the external cause; Z88.8 Allergy status to other drugs, medicaments and biological substances
CPT/HCPCS: 99284

== ENCOUNTER 2017-07-05 12:32 | Inpatient (IN) | payer OTHER ==
--- OUTSIDE RECORDS SUMMARY | 2017-07-05 12:35 | XMS REPORT ---
:1950 Author Organization [facility] Address [address] [place] [address] [address] [place] [address] Care Team Providers Name Role Phone AMBIKA, MIRELA Edwards Unavailable Unavailable Problems This patient has no known problems. Allergies, Adverse Reactions, Alerts This patient has no known allergies or adverse reactions. Medications This patient has no known medications. Results Test Description Test Time Test Comments Text Results Atomic Results Result Comments BASIC METABOLIC PANEL 2016-09-04 08:00:00 Test Item Value Reference Range Comments SODIUM (BEAKER) (test 139 meq/L 136-145 uvxk=170) POTASSIUM (BEAKER) (test 3.7 meq/L 3.5-5.1 dbhv=046) CHLORIDE (BEAKER) (test 104 meq/L 98-107 gxsv=173) CO2 (BEAKER) (test znxy=342) 28 meq/L 22-29 BLOOD UREA NITROGEN (BEAKER) 11 mg/dL 7-21 (test ozmt=736) CREATININE (BEAKER) (test 0.73 mg/dL 0.57-1.25 gfdt=384) GLUCOSE RANDOM (BEAKER) 99 mg/dL 70-105 (test vwdo=165) CALCIUM (BEAKER) (test 9.0 mg/dL 8.4-10.2 urra=100) EGFR (BEAKER) (test 80 mL/min/1.73 sq m ESTIMATED GFR IS NOT erum=6705) ACCURATE CREATININE CLEARANCE IN PREDICTING GLOMERULAR FILTRATION RATE. ESTIMATED GFR IS NOT APPLICABLE FOR DIALYSIS PATIENTS. CBC (HEMOGRAM ONLY)2016-09-04 07:16:00 Test Item Value Reference Range Comments WHITE BLOOD CELL COUNT (BEAKER) (test bdkb=876) 7.4 K/ L 4.0-10.0 RED BLOOD CELL COUNT (BEAKER) (test dswj=539) 3.78 M/ L 4.00-5.00 HEMOGLOBIN (BEAKER) (test bapg=994) 12.3 GM/DL 12.0-15.0 HEMATOCRIT (BEAKER) (test weyf=323) 35.6 % 36.0-45.0 MEAN CORPUSCULAR VOLUME (BEAKER) (test zfvt=168) 94.2 fL 82.0-99.0 MEAN CORPUSCULAR HEMOGLOBIN (BEAKER) (test 32.6 pg 27.0-33.0 iuas=231) MEAN CORPUSCULAR HEMOGLOBIN CONC (BEAKER) (test 34.6 GM/DL 32.0-36.0 irpa=292) RED CELL DISTRIBUTION WIDTH (BEAKER) (test 11.3 % 10.3-14.2 fdfr=261) PLATELET COUNT (BEAKER) (test jmuf=491) 327 K/CU MM 150-430 MEAN PLATELET VOLUME (BEAKER) (test vwbu=676) 5.5 fL 6.5-10.5 NUCLEATED RED BLOOD CELLS (BEAKER) (test 0 /100 WBC 0-0 fpzu=016) 0.00CBC (HEMOGRAM ONLY)2016-09-03 07:52:00 Test Item Value Reference Range Comments WHITE BLOOD CELL COUNT (BEAKER) (test dgls=547) 6.1 K/ L 4.0-10.0 RED BLOOD CELL COUNT (BEAKER) (test gdmb=620) 4.10 M/ L 4.00-5.00 HEMOGLOBIN (BEAKER) (test wzsx=000) 12.7 GM/DL 12.0-15.0 HEMATOCRIT (BEAKER) (test lorx=823) 38.0 % 36.0-45.0 MEAN CORPUSCULAR VOLUME (BEAKER) (test xmzy=118) 92.8 fL 82.0-99.0 MEAN CORPUSCULAR HEMOGLOBIN (BEAKER) (test 30.9 pg 27.0-33.0 ubys=018) MEAN CORPUSCULAR HEMOGLOBIN CONC (BEAKER) (test 33.3 GM/DL 32.0-36.0 enee=391) RED CELL DISTRIBUTION WIDTH (BEAKER) (test 13.0 % 10.3-14.2 crgt=105) PLATELET COUNT (BEAKER) (test woyj=427) 356 K/CU MM 150-430 MEAN PLATELET VOLUME (BEAKER) (test lfge=604) 5.9 fL 6.5-10.5 NUCLEATED RED BLOOD CELLS (BEAKER) (test 0 /100 WBC 0-0 gruw=471) 0.00BASIC METABOLIC [id number] 07:14:00 Test Item Value Reference Range Comments SODIUM (BEAKER) (test 141 meq/L 136-145 quok=307) POTASSIUM (BEAKER) (test 3.7 meq/L 3.5-5.1 oadd=453) CHLORIDE (BEAKER) (test 105 meq/L 98-107 yfqg=537) CO2 (BEAKER) (test 28 meq/L 22-29 bqod=753) BLOOD UREA NITROGEN 10 mg/dL 7-21 (BEAKER) (test ttov=399) CREATININE (BEAKER) (test 0.69 mg/dL 0.57-1.25 skdn=475) GLUCOSE RANDOM (BEAKER) 100 mg/dL 70-105 (test ghsv=472) CALCIUM (BEAKER) (test 9.7 mg/dL 8.4-10.2 jhci=466) EGFR (BEAKER) (test 85 mL/min/1.73 sq m ESTIMATED GFR IS NOT ibrm=4199) ACCURATE CREATININE CLEARANCE IN PREDICTING GLOMERULAR FILTRATION RATE. ESTIMATED GFR IS NOT APPLICABLE FOR DIALYSIS PATIENTS. BASIC METABOLIC [id number] 07:55:00 Test Item Value Reference Range Comments SODIUM (BEAKER) (test 140 meq/L 136-145 mcia=800) POTASSIUM (BEAKER) (test 3.8 meq/L 3.5-5.1 vjsu=649) CHLORIDE (BEAKER) (test 106 meq/L 98-107 mkgg=909) CO2 (BEAKER) (test 24 meq/L 22-29 utzr=826) BLOOD UREA NITROGEN 12 mg/dL 7-21 (BEAKER) (test enhr=406) CREATININE (BEAKER) (test 0.68 mg/dL 0.57-1.25 uchx=229) GLUCOSE RANDOM (BEAKER) 97 mg/dL 70-105 (test uwro=885) CALCIUM (BEAKER) (test 9.3 mg/dL 8.4-10.2 coef=838) EGFR (BEAKER) (test 87 mL/min/1.73 sq m ESTIMATED GFR IS NOT fzab=3699) ACCURATE CREATININE CLEARANCE IN PREDICTING GLOMERULAR FILTRATION RATE. ESTIMATED GFR IS NOT APPLICABLE FOR DIALYSIS PATIENTS. CBC (HEMOGRAM ONLY)2016-09-02 07:46:00 Test Item Value Reference Range Comments WHITE BLOOD CELL COUNT (BEAKER) (test pnzc=511) 6.6 K/ L 4.0-10.0 RED BLOOD CELL COUNT (BEAKER) (test imgs=974) 4.04 M/ L 4.00-5.00 HEMOGLOBIN (BEAKER) (test qihb=591) 12.8 GM/DL 12.0-15.0 HEMATOCRIT (BEAKER) (test fqhv=258) 38.2 % 36.0-45.0 MEAN CORPUSCULAR VOLUME (BEAKER) (test qvdk=272) 94.5 fL 82.0-99.0 MEAN CORPUSCULAR HEMOGLOBIN (BEAKER) (test 31.7 pg 27.0-33.0 ivkc=855) MEAN CORPUSCULAR HEMOGLOBIN CONC (BEAKER) (test 33.6 GM/DL 32.0-36.0 pzrk=487) RED CELL DISTRIBUTION WIDTH (BEAKER) (test 11.4 % 10.3-14.2 kemk=934) PLATELET COUNT (BEAKER) (test lmml=071) 380 K/CU MM 150-430 MEAN PLATELET VOLUME (BEAKER) (test aicx=209) 5.5 fL 6.5-10.5 NUCLEATED RED BLOOD CELLS (BEAKER) (test 0 /100 WBC 0-0 twcd=106) [id number] 11:31:00 Test Item Value Reference Range Comments RPR SCREEN (BEAKER) (test clim=142) Nonreactive Nonreactive SEDIMENTATION [id number] 10:14:00 Test Item Value Reference Range Comments SEDIMENTATION RATE, ERYTHROCYTE (BEAKER) (test 36 mm/HR 0-40 ukbn=701) HEMOGLOBIN [id number] 09:41:00 Test Item Value Reference Range Comments HEMOGLOBIN A1C (BEAKER) (test dmpd=244) 5.6 % 4.3-6.1 C-REACTIVE [id number] 09:01:00 Test Item Value Reference Range Comments C-REACTIVE PROTEIN (BEAKER) (test rzgk=459) 0.93 mg/dL 0.00-0.50 CBC W/PLT COUNT & AUTO [id number] 06:46:00 Test Item Value Reference Range Comments WHITE BLOOD CELL COUNT (BEAKER) (test lmdu=035) 7.9 K/ L 4.0-10.0 RED BLOOD CELL COUNT (BEAKER) (test qmul=914) 4.23 M/ L 4.00-5.00 HEMOGLOBIN (BEAKER) (test lpmo=037) 13.4 GM/DL 12.0-15.0 HEMATOCRIT (BEAKER) (test ztmq=206) 39.4 % 36.0-45.0 MEAN CORPUSCULAR VOLUME (BEAKER) (test owzr=323) 93.0 fL 82.0-99.0 MEAN CORPUSCULAR HEMOGLOBIN (BEAKER) (test 31.8 pg 27.0-33.0 xpwn=224) MEAN CORPUSCULAR HEMOGLOBIN CONC (BEAKER) (test 34.2 GM/DL 32.0-36.0 agxq=231) RED CELL DISTRIBUTION WIDTH (BEAKER) (test 11.3 % 10.3-14.2 dwjl=222) PLATELET COUNT (BEAKER) (test xtjj=848) 433 K/CU MM 150-430 MEAN PLATELET VOLUME (BEAKER) (test ufze=335) 5.5 fL 6.5-10.5 NUCLEATED RED BLOOD CELLS (BEAKER) (test 0 /100 WBC 0-0 gwfx=376) NEUTROPHILS RELATIVE PERCENT (BEAKER) (test 63 % ouig=401) LYMPHOCYTES RELATIVE PERCENT (BEAKER) (test 30 % qkqj=810) MONOCYTES RELATIVE PERCENT (BEAKER) (test 7 % vfwt=152) EOSINOPHILS RELATIVE PERCENT (BEAKER) (test 1 % qfri=010) BASOPHILS RELATIVE PERCENT (BEAKER) (test 0 % jlcm=788) NEUTROPHILS ABSOLUTE COUNT (BEAKER) (test 4.91 K/ L 1.80-8.00 evyb=273) LYMPHOCYTES ABSOLUTE COUNT (BEAKER) (test 2.32 K/ L 1.48-4.50 ubmf=152) MONOCYTES ABSOLUTE COUNT (BEAKER) (test 0.53 K/ L 0.00-1.30 bhub=970) EOSINOPHILS ABSOLUTE COUNT (BEAKER) (test 0.07 K/ L 0.00-0.50 ofld=516) BASOPHILS ABSOLUTE COUNT (BEAKER) (test 0.02 K/ L 0.00-0.20 brte=332) 0.00VITAMIN [id number] 06:33:00 Test Item Value Reference Range Comments VITAMIN B12 (BEAKER) (test cyod=648) 1205 pg/mL 213-816 TSH/FREE T4 IF [id number] 06:33:00 Test Item Value Reference Range Comments THYROID STIMULATING HORMONE (BEAKER) (test 1.73 uIU/mL 0.35-4.94 dmkb=633) [id number] 06:28:00 Test Item Value Reference Range Comments PHOSPHORUS (BEAKER) (test ognw=241) 2.7 mg/dL 2.3-4.7 [id number] 06:28:00 Test Item Value Reference Range Comments MAGNESIUM (BEAKER) (test kjwi=332) 2.1 mg/dL 1.6-2.6 BASIC METABOLIC [id number] 06:28:00 Test Item Value Reference Range Comments SODIUM (BEAKER) (test 141 meq/L 136-145 qwuo=169) POTASSIUM (BEAKER) (test 3.2 meq/L 3.5-5.1 luxl=700) CHLORIDE (BEAKER) (test 103 meq/L 98-107 luiz=693) CO2 (BEAKER) (test 26 meq/L 22-29 mtio=801) BLOOD UREA NITROGEN 19 mg/dL 7-21 (BEAKER) (test yjdb=494) CREATININE (BEAKER) (test 0.68 mg/dL 0.57-1.25 sfxq=272) GLUCOSE RANDOM (BEAKER) 87 mg/dL 70-105 (test cgep=949) CALCIUM (BEAKER) (test 9.7 mg/dL 8.4-10.2 uigi=437) EGFR (BEAKER) (test 87 mL/min/1.73 sq m ESTIMATED GFR IS NOT ttww=4967) ACCURATE CREATININE CLEARANCE IN PREDICTING GLOMERULAR FILTRATION RATE. ESTIMATED GFR IS NOT APPLICABLE FOR DIALYSIS PATIENTS. LIPID [id number] 06:28:00 Test Item Value Reference Range Comments TRIGLYCERIDES (BEAKER) (test tnki=142) 79 mg/dL CHOLESTEROL (BEAKER) (test vait=633) 244 mg/dL HDL CHOLESTEROL (BEAKER) (test aplv=479) 64 mg/dL LDL CHOLESTEROL CALCULATED (BEAKER) (test 164 mg/dL cout=566) Triglyceride Reference Range: Low Risk <150 Borderline 150- 199 High Risk 200-499 Very High Risk >=500Cholesterol Reference Range: Low Risk <200 Borderline 200-239 High Risk > 240HDL Cholesterol Reference Range: Low Risk >=60 High Risk <40LDL Cholesterol Reference Range: Optimal <100 Near Optimal 100-129 Borderline 130-159 High 160-189 Very High >=190HEPATIC FUNCTION [id number] 06:28:00 Test Item Value Reference Range Comments TOTAL PROTEIN (BEAKER) (test yeir=663) 8.0 gm/dL 6.0-8.3 ALBUMIN (BEAKER) (test ubwj=4212) 4.4 g/dL 3.5-5.0 BILIRUBIN TOTAL (BEAKER) (test jnui=770) 0.7 mg/dL 0.2-1.2 BILIRUBIN DIRECT (BEAKER) (test vtyi=022) 0.3 mg/dL 0.1-0.5 ALKALINE PHOSPHATASE (BEAKER) (test qpki=406) 112 U/L 40-150 AST (SGOT) (BEAKER) (test csdj=321) 19 U/L 5-34 ALT (SGPT) (BEAKER) (test urcq=078) 11 U/L 6-55 CREATINE KINASE (CK), TOTAL AND [id number] 06:28:00 Test Item Value Reference Range Comments CREATINE KINASE TOTAL (BEAKER) (test irov=038) 85 U/L 29-200 CREATINE KINASE-MB (BEAKER) (test deda=511) 1.2 ng/mL 0.0-6.6 CREATINE KINASE-MB INDEX (BEAKER) (test nefa=504) 1.4 % Effective 01/03/2014: CK-MB Reference Range ChangeNew: 0.0-6.6 Previous: 0.0- 4.9CK-MB Reference Range:<6.7 Normal6.7-10.0 Borderline>10.0 AbnormalTROPONIN [id number] 06:11:00 Test Item Value Reference Range Comments TROPONIN I (BEAKER) (test xfmm=842) < ng/mL 0.00-0.03 Effective 01/03/2014: Reference Range [...] acute neurological disease, and persistent tachyarrhythmia.BASIC METABOLIC [id number] 00:40:00 Test Item Value Reference Range Comments SODIUM (BEAKER) (test 139 meq/L 136-145 uiki=874) POTASSIUM (BEAKER) (test 3.0 meq/L 3.5-5.1 phtn=908) CHLORIDE (BEAKER) (test 103 meq/L 98-107 emry=123) CO2 (BEAKER) (test 26 meq/L 22-29 xpzd=192) BLOOD UREA NITROGEN 19 mg/dL 7-21 (BEAKER) (test wgeb=075) CREATININE (BEAKER) (test 0.71 mg/dL 0.57-1.25 uyat=593) GLUCOSE RANDOM (BEAKER) 95 mg/dL 70-105 (test emiy=054) CALCIUM (BEAKER) (test 9.4 mg/dL 8.4-10.2 vnuy=265) EGFR (BEAKER) (test mL/min/1.73 sq m INSUFFICIENT CLINICAL DATA qxtm=6497) TO CALCULATE ESTIMATED GFR. CBC W/PLT COUNT & AUTO [id number] 23:58:00 Test Item Value Reference Range Comments WHITE BLOOD CELL COUNT (BEAKER) (test mptw=680) 8.6 K/ L 4.0-10.0 RED BLOOD CELL COUNT (BEAKER) (test jlyl=745) 4.15 M/ L 4.00-5.00 HEMOGLOBIN (BEAKER) (test obfd=323) 12.9 GM/DL 12.0-15.0 HEMATOCRIT (BEAKER) (test mcmt=942) 38.7 % 36.0-45.0 MEAN CORPUSCULAR VOLUME (BEAKER) (test dvph=705) 93.2 fL 82.0-99.0 MEAN CORPUSCULAR HEMOGLOBIN (BEAKER) (test 31.1 pg 27.0-33.0 gwdu=732) MEAN CORPUSCULAR HEMOGLOBIN CONC (BEAKER) (test 33.4 GM/DL 32.0-36.0 cgks=871) RED CELL DISTRIBUTION WIDTH (BEAKER) (test 11.3 % 10.3-14.2 zijp=882) PLATELET COUNT (BEAKER) (test gowu=932) 427 K/CU MM 150-430 MEAN PLATELET VOLUME (BEAKER) (test coks=312) 5.4 fL 6.5-10.5 NUCLEATED RED BLOOD CELLS (BEAKER) (test 0 /100 WBC 0-0 oqhl=085) NEUTROPHILS RELATIVE PERCENT (BEAKER) (test 64 % ulzi=085) LYMPHOCYTES RELATIVE PERCENT (BEAKER) (test 28 % yokj=390) MONOCYTES RELATIVE PERCENT (BEAKER) (test 7 % xiav=667) EOSINOPHILS RELATIVE PERCENT (BEAKER) (test 1 % aexy=004) BASOPHILS RELATIVE PERCENT (BEAKER) (test 0 % ztwy=815) NEUTROPHILS ABSOLUTE COUNT (BEAKER) (test 5.49 K/ L 1.80-8.00 cukh=817) LYMPHOCYTES ABSOLUTE COUNT (BEAKER) (test 2.40 K/ L 1.48-4.50 gxwe=114) MONOCYTES ABSOLUTE COUNT (BEAKER) (test 0.57 K/ L 0.00-1.30 bwrt=646) EOSINOPHILS ABSOLUTE COUNT (BEAKER) (test 0.05 K/ L 0.00-0.50 ctwk=979) BASOPHILS ABSOLUTE COUNT (BEAKER) (test 0.04 K/ L 0.00-0.20 akml=264) 0.00
--- OUTSIDE RECORDS SUMMARY | 2017-07-05 12:35 | XMS REPORT | Clinical Summary ---
:1950 Author Organization [facility] Address [address] [place] [id number] Care Team Providers Name Role Phone Asked, No Pcp Primary Care Provider Unavailable Allergies Not on File Current Medications Not on file Active Problems Not on file Encounters Date Type Specialty Care Team Description 08/30/2016 Lab Lab Araceli Weaver MD 08/29/2016 Lab Lab Timur Oconnor MD after 07/04/2016 Social History Tobacco Use Types Packs/Day Years Used Date Never Assessed Sex Assigned at Date Recorded Not on file Last Filed Vital Signs Not on file Plan of Treatment Health Maintenance Due Date Last Done Comments BREAST CANCER SCREENING 2000 COLON CANCER SCREENING 2000 SHINGRIX VACCINE (#1) 2000 ZOSTER VACCINE 2010 PNEUMOCOCCAL POLYSACCHARIDE VACCINE AGE 65 AND OVER 06/30/2015 PNEUMOCOCCAL-13 06/30/2015 INFLUENZA VACCINE 09/16/2017 Results Acanthamoeba culture (08/29/2016 9:00 PM) Component Value Ref Range Acanthamoeba culture isolate Cancelled - No specimen received. Patient credited Comment: Specimen Information Specimen Source: Cornea Specimen Site: Right Eye Specimen Performing Laboratory Cornea [facility] DEPARTMENT OF PATHOLOGY AND GENOMIC MEDICINE [address] [place] [id number] Eye culture, anaerobic (08/29/2016 9:00 PM)Only the most recent of2 resultswithin the time period is included. Component Value Ref Range Eye culture isolate, anaerobic Brucella blood agar: No anaerobes isolated after 7 days. Comment: Specimen Information Specimen Source: Cornea Specimen Site: Right Eye Specimen Performing Laboratory Cornea [facility] DEPARTMENT OF PATHOLOGY AND GENOMIC MEDICINE [address] [place] [id number] Acridine orange stain (08/29/2016 9:00 PM)Only the most recent of2 resultswithin the time period is included. Component Value Ref Range Acridine orange stain No WBC's or organisms seen Comment: Specimen Information Specimen Source: Cornea Specimen Site: Right Eye Specimen Performing Laboratory Cornea [facility] DEPARTMENT OF PATHOLOGY AND GENOMIC MEDICINE [address] [place] [address] AFB culture (08/29/2016 9:00 PM) Component Value Ref Range AFB culture isolate No growth after 6 weeks of incubation. Comment: Specimen Information Specimen Source: Cornea Specimen Site: Right Eye Specimen Performing Laboratory Cornea [facility] DEPARTMENT OF PATHOLOGY AND [address] [address] Eye culture (08/29/2016 9:00 PM) Component Value [...] validated by the Microbiology Laboratory at [facility].This source has not been approved by the [...] results accordingly. (A) Specimen Performing Laboratory Cornea [facility] DEPARTMENT OF PATHOLOGY AND GENOMIC MEDICINE [address] [place] [id number] Organism Antibiotic Method Susceptibility Staphylococcus aureus Ampicillin [...] Site: Right Eye Specimen Performing Laboratory Cornea [facility] DEPARTMENT OF PATHOLOGY AND GENOMIC MEDICINE [address] [place] [id number] AFB stain (08/29/2016 9:00 PM)Only the most recent of2 resultswithin the time period is included. Component Value Ref Range AFB stain No acid fast bacilli (AFB) seen. Comment: Specimen Information Specimen Source: Cornea Specimen Site: Right Eye Specimen Performing Laboratory Cornea [facility] DEPARTMENT OF PATHOLOGY AND GENOMIC MEDICINE [address] [place] [id number] Fungus culture (08/29/2016 9:00 PM) Component Value Ref Range Fungus culture isolate No growth after 4 weeks of incubation. Comment: Specimen Information Specimen Source: Cornea Specimen Site: Right Eye Specimen Performing Laboratory Cornea [facility] DEPARTMENT OF PATHOLOGY AND GENOMIC MEDICINE [address] [place] [address] after 07/04/2016 Insurance Payer Benefit Plan / Group Subscriber ID Type Phone Address MEDICARE MEDICARE PART A AND B xxxxxxxxxx Medicare [place], [place] CIGNA CIGNA PPO xxxxxxxxxxx PPO [id number] [place] [phone] [phone]
--- OUTSIDE RECORDS SUMMARY | 2017-07-05 12:35 | XMS REPORT | Clinical Summary ---
:1950 Author Organization [facility] Address [address] [place] [address] Phone Care Team Providers Name Role Phone [...] behavioral Darryn-Germain disturbance, MD Ariel unspecified dementia Salgado, Tien type;Eye infection, MD Parrish right;Hypokalemia;Mixe Lesvia, Yashash d hyperlipidemia D after 07/04/2016 Social History Tobacco Use Types [...] MICROBIAL KERATITIS Special Needs (REQ 1130) after 07/04/2016 Results CBC (Hemogram only) (09/04/2016 6:43 AM)Only [...] WBC Specimen Performing Laboratory Blood - Arm, [address] [address] Narrative 0.00 Basic Metabolic Panel (09/04/2016 6:43 [...] PATIENTS. Specimen Performing Laboratory Blood - Arm, [address] [address] TSH/Free T4 If Indicated (08/30/2016 5:15 AM) Component Value Ref Range TSH 1.73 0.35 - 4.94 uIU/mL Specimen Performing Laboratory Blood - Arm, [address] [address] C-Reactive Protein (08/30/2016 5:15 AM) Component Value Ref Range CRP 0.93 (H) 0.00 - 0.50 mg/dL Specimen Performing Laboratory Blood - Arm, [address] [address] CBC with platelet count + automated diff [...] K/L Specimen Performing Laboratory Blood - Arm, [address] [address] Narrative 0.00 Troponin I (08/30/2016 5:15 AM) Component Value Ref Range Troponin I <0.01 0.00 - 0.03 ng/mL Specimen Performing Laboratory Blood - Arm, [address] [address] Narrative Effective 01/03/2014: Reference Range Change New: [...] Nonreactive Specimen Performing Laboratory Blood - Arm, [address] [address] Sedimentation rate (08/30/2016 5:15 AM) Component Value Ref Range Sed Rate 36 0 - 40 mm/HR Specimen Performing Laboratory Blood - Arm, [address] [address] CBC with platelet count + automated diff (08/30/2016 5:15 AM)Only the most recent of2 resultswithin the time period is included. Specimen Performing Laboratory Blood Narrative The following orders were created for panel order CBC with platelet count + automated diff. Procedure Abnormality Status --------- ------ CBC with platelet count ...[[id number]]AbnormalFinal result Please view results for these tests on the individual orders. Phosphorus (08/30/2016 5:15 AM) Component Value Ref Range Phosphorus 2.7 2.3 - 4.7 mg/dL Specimen Performing Laboratory Blood - Arm, [address] [address] Magnesium (08/30/2016 5:15 AM) Component Value Ref Range Magnesium 2.1 1.6 - 2.6 mg/dL Specimen Performing Laboratory Blood - Arm, [address] [address] Hemoglobin A1c (08/30/2016 5:15 AM) Component Value Ref Range Hemoglobin A1C 5.6 4.3 - 6.1 % Specimen Performing Laboratory Blood - Arm, [address] [address] Vitamin B12 (08/30/2016 5:15 AM) Component Value Ref Range Vitamin B12 1205 (H) 213 - 816 pg/mL Specimen Performing Laboratory Blood - Arm, [address] [address] Creatine Kinase (CK), Total and MB (08/30/2016 5:15 AM) Component Value Ref Range Total CK 85 29 - 200 U/L CK-MB 1.2 0.0 - 6.6 ng/mL MB Relative Index 1.4 % Specimen Performing Laboratory Blood - Arm, [address] [address] Narrative Effective 01/03/2014: CK-MB Reference Range Change [...] U/L Specimen Performing Laboratory Blood - Arm, [address] [address] Lipid panel (08/30/2016 5:15 AM) Component Value Ref Range Triglycerides 79 mg/dL Cholesterol 244 mg/dL HDL 64 mg/dL LDL Calculated 164 mg/dL Specimen Performing Laboratory Blood - Arm, Right [address] [address] Narrative Triglyceride Reference Range: Low Risk <150 [id number] High Risk 200-499 Very High Risk>=500 Cholesterol Reference Range: Low Risk <200 [id number] High Risk>240 HDL Cholesterol Reference Range: Low Risk >=60 High Risk <40 LDL Cholesterol Reference Range: Optimal<100 Near [id number] Very High >=190 ECG 12 lead (08/30/2016 1:16 AM) Specimen Performing Laboratory GE MUSE Narrative Ventricular Rate 75 BPM Atrial Rate 75 BPM P-R Interval 172 ms QRS Duration 84 ms Q-T Interval 412 ms QTC Calculation(Bazett) 460 ms P [place] 60 degrees R [place] 86 degrees T [place] 76 degrees Normal sinus rhythm T wave abnormality, consider anterior ischemia Abnormal ECG No previous ECGs available Confirmed by MD GASTON JORGE ([id number]) on 08/30/2016 11:38:24 AM Procedure Note Interface, External Ris In - 08/30/2016 11:38 AM CDT Ventricular Rate 75 BPM Atrial Rate 75 BPM P-R Interval 172 ms QRS Duration 84 ms Q-T Interval 412 ms QTC Calculation(Bazett) 460 ms P [place] 60 degrees R [place] 86 degrees T [place] 76 degrees Normal sinus rhythm T wave abnormality, consider anterior ischemia Abnormal ECG No previous ECGs available Confirmed by MD GASTON JORGE ([id number]) on 08/30/2016 11:38:24 AM after 07/04/2016
[2017-07-05] MEDS ORDERED: ACETAMINOPHEN 650MG/RECT SUPP PR ONE (12:38)
[2017-07-05] MEDS ORDERED: NA CHLORIDE 0.9% 2,000 ML ONE (12:38)
[2017-07-05 13:20] LABS: Protime INR 1.07
[2017-07-05 13:23] LABS: Absolute Lymphocytes (CBC) 0.5 K/uL (0.7-4.9); Absolute Monocytes 0.6 K/uL (0.1-1.3); Absolute Neutrophil 6.8 K/uL (1.8-8.0); Basophils % 0.1 % (0-1.3); Eosinophils % 0.2 % (0-4.4); Hematocrit 37.1 % (36.0-45.0); Lymphocytes % 5.9 % (15.3-44.8); MCH 28.5 pg (27.0-35.0); MCV 85.5 fL (80-100); MPV 6.9 fL (7.6-11.3); Monocytes % 7.9 % (3.3-12.3); RBC Red Blood Cell Count 4.35 M/uL (3.86-4.86)
[2017-07-05 13:28] LABS: Bicarbonate 25 mEq/L (21-31); Glucose Level 117 mg/dL (65-120); Lipase 23 U/L (22-51); Potassium 3.3 mEq/L (3.6-5.0); Sodium Level 135 mEq/L (135-145)
[2017-07-05 13:34] LABS: ALT/SGPT 16 IU/L (10-60); AST/SGOT 28 IU/L (10-42); Alkaline Phosphatase 90 IU/L (42-121); BUN Blood Urea Nitrogen 19 mg/dL (6-20); Bilirubin Direct 0.1 mg/dL (0-0.2); Bilirubin Total 0.5 mg/dL (0.3-1.2); Creatine Phosphokinase 339 IU/L (22-269); Protein, Total 7.3 g/dL (6.0-8.3)
[2017-07-05 13:47] LABS: Anisocytosis 1+; Blood Morphology Comment NOTED (NOT SEEN); Platelet Estimate ADEQ; Urine White Blood Cell Casts OK
[2017-07-05] MEDS ORDERED: levETIRAcetam 1,000 MG in NA CHLORIDE 0.9% 100 ML IV ONE (14:15)
[2017-07-05] MEDS ORDERED: CEFTRIAXONE/SWI 1gm 1 GM/10 ML SYR ONE (14:34)
[2017-07-05 15:08] LABS: Urine Amorphous Sediment 1+ /HPF (NONE SEEN); Urine Bacteria <20 /HPF (<20); Urine Culture Reflex Order NOT NEEDED; Urine Mucus 1+ /HPF (NONE SEEN); Urine RBC <5 /HPF (NONE SEEN)
--- NOTE | 2017-07-05 15:25 | RAD REPORT ---
EXAM DESCRIPTION: [facility] Single View07/05/2017 2:13 pm CLINICAL HISTORY: Fever COMPARISON: February 2017 FINDINGS: The lungs appear grossly clear. The heart is normal size IMPRESSION: No acute abnormalities displayed
--- NOTE | 2017-07-05 15:51 | ER ---
Nurse's Notes [facility] Name: Iliana Bennett Age: 67 yrs Sex: Female : 1950 Arrival Date: 07/05/2017 Time: 12:33 Bed 3 Private MD: Diagnosis: Fever, unspecified;Epilepsy and recurrent seizures Presentation: 07/05 12:33 Presenting complaint: EMS states: [facility] reported 2 seizures today and low O2 sat aa5 at 86%. EMS reports pt's O2 was 88% 2 L NC upon scene arrival and 103.0 F temperature. Pt's baseline is A \T\ O x 1. Transition of care: patient was received from another setting of care (long-term care facility), [facility]. Onset of symptoms was July 05, 2017. 12:33 Method Of Arrival: EMS: [facility] aa5 12:33 Acuity: MARIJA 2 aa5 12:33 Care prior to arrival: Glucose check: 128 Oxygen administered. aa5 13:08 Initial Sepsis Screen: Does the patient meet any 2 criteria? Temp <36.0*C (96.8*F)) or tw2 > 38.3*C (100.4*F). HR > 90 bpm. Does the patient have a suspected source of infection? No. Patient's initial sepsis screen is negative. If YES to both, name of provider notified: Simone COOPER. Triage Assessment: 13:09 General: Appears in no apparent distress. Behavior is calm. EENT: No signs and/or tw2 symptoms were reported regarding the EENT system. Neuro: Level of Consciousness is confused, Oriented to person, this is patients baseline. Cardiovascular: Heart tones S1 S2 Capillary refill < 3 seconds Patient's skin is warm and dry. Respiratory: Airway is patent Respiratory effort is even, unlabored, Respiratory pattern is regular, symmetrical, Breath sounds are clear bilaterally. GI: No signs and/or symptoms were reported involving the gastrointestinal system. : No signs and/or symptoms were reported regarding the genitourinary system. Derm: Skin is intact, is fragile, is thin, Skin temperature is warm. Musculoskeletal: Range of motion:. 13:15 Pain: Unable to use pain scale. Patient appears quiet. tw2 Historical: - Allergies: 13:12 Ativan; hb 13:12 Benadryl; hb 13:12 Talwin NX; hb 13:12 Demerol; hb - Home Meds: 13:12 Keppra 500 mg Oral tab [Active]; magnesium oxide 400 mg Oral cap [Active]; melatonin 3 hb mg Oral tab [Active]; - PMHx: 13:12 Dementia; Hyperlipidemia; Seizures; hb - Immunization history:: Adult Immunizations up to date. - Social history:: Smoking status: Patient/guardian denies using tobacco. Screenin:12 Abuse screen: Denies threats or abuse. Nutritional screening: No deficits noted. tw2 Tuberculosis screening: No symptoms or risk factors identified. Fall Risk Secondary diagnosis (15 points) seizures, dementia, IV access (20 points). Mental Status- Overestimates/Forgets Limitations (15 pts.). Assessment: 13:10 General: see triage assessment. hb 13:48 Reassessment: Seizure activity that lasted 40 seconds, SpO2 dropped to 60s, HR 160-175. hb PT placed on NRB and ALLISON Nichols notified. 13:56 Reassessment: Pt is postictal at this time. Placed on 3LNC, SpO2 98%, HR 108. Keppra hb order faxed to pharmacy. . 14:57 Reassessment: Patient appears in no apparent distress at this time. Patient and/or hb family updated on plan of care and expected duration. Pain level reassessed. Pt resting with eyes closed. VSS. 15:24 Reassessment: Patient appears in no apparent distress at this time. No changes from hb previously documented assessment. Patient and/or family updated on plan of care and expected duration. Pain level reassessed. 16:30 Reassessment: Patient appears in no apparent distress at this time. No changes from hb previously documented assessment. VSS. 17:30 Reassessment: Patient appears in no apparent distress at this time. No changes from hb previously documented assessment. VSS, no seizure activity noted. Vital Signs: 13:08 Weight 43.09 kg (R); tw2 13:08 BP 126 / 59; Pulse 100; Resp 17; Temp 100.2(TE); Pulse Ox 97% on R/A; tw2 13:08 Temp 101.4(C); tw2 13:45 Pulse 170; Pulse Ox 66% ; hb 13:50 Pulse Ox 97% on 15% Non-rebreather mask; hb 14:11 BP 106 / 63; Pulse 107; Resp 16; Pulse Ox 97% on 3 lpm NC; hb 14:58 BP 126 / 63; Pulse 88; Resp 16; Pulse Ox 97% on 3 lpm NC; hb 15:26 BP 123 / 54; Pulse 85; Resp 16; Temp 100(C); Pulse Ox 95% on R/A; tw2 16:30 BP 118 / 62; Pulse 90; Resp 16; Pulse Ox 100% on R/A; hb [place] Coma Score: 13:09 Eye Response: to voice(3). Verbal Response: confused(4). Motor Response: localizes tw2 pain(5). Total: 12. 13:09 this is pts baseline tw2 ED Course: 12:33 Patient arrived in ED. aa5 12:33 Arm band placed on. aa5 12:34 Simone Ann PA is PHCP. jr8 12:34 Ignacio Reyna MD is Attending Physician. jr8 12:35 Triage completed. aa5 12:40 Placed in gown. Bed in low position. Side rails up X2. environmental monitoring specialist on. Pulse ox on. tw2 NIBP on. 12:45 Seizure precautions initiated. tw2 12:45 Inserted saline lock: 22 gauge in left forearm, using aseptic technique. hb 12:46 Maintain EMS IV. Dressing intact. Good blood return noted. Site clean \T\ dry. Gauge \T\ hb site: 20g RIGHT AC. 12:50 Inserted saline lock: 22 gauge in left forearm, using aseptic technique. Blood hb collected. 13:07 Ghislaine Castro RN is Primary Nurse. tw2 13:18 Note: Attempted PCXR, Pt uncooperative, refused.. jw2 14:11 Chest Single View XRAY In Process Unspecified. EDMS 15:50 Hamlet Herrmann MD is Hospitalizing Provider. jr8 16:59 CT completed. Patient moved to CT via wheelchair. Patient moved back from CT. cw1 17:40 No provider procedures requiring assistance completed. Patient admitted, IV remains in hb place. Administered Medications: 13:00 Drug: NS 0.9% (30 ml/kg) 30 ml/kg Route: IV; Rate: bolus; Site: left forearm; hb 14:36 Follow up: Response: No adverse reaction; IV Status: Completed infusion hb 13:00 Drug: Tylenol Suppository 650 mg Route: NC; tw2 14:00 Follow up: Response: No adverse reaction; Temperature is decreased hb 14:36 Drug: Keppra 1000 mg Route: IV; Rate: calculated rate; Site: left forearm; hb 14:59 Follow up: Response: No adverse reaction; IV Status: Completed infusion hb 14:36 Drug: Rocephin - (cefTRIAXone) 1 grams Route: IVPB; Infused Over: 30 mins; Site: left hb forearm; Outcome: 15:50 Decision to Hospitalize by Provider. al 17:30 Admitted to Tele accompanied by tech, via stretcher, room 232, Report called to solitario Burton RN 17:30 Condition: stable 17:30 Instructed on the need for admit. 17:43 Patient left the ED. solitario Signatures: Dispatcher [employer] EDSummer Warren, RN RN Nanda Rodgers cw1 Simone Ann, Ami Anderson jw2 Valarie Mayer RN RN Ghislaine Castro RN RN tw2 Corrections: (The following items were deleted from the chart) 13:15 13:08 BP 126 / 59; Pulse 100bpm; Resp 17bpm; Pulse Ox 97% RA; Temp 100.6F Catheter; tw2 tw2 13:57 13:50 Reassessment: Seizure activity that lasted 40 seconds, SpO2 dropped to 60s, HR hb 160-175. PT placed on NRB and ALLISON Nichols notified. 15:26 15:24 BP 123 / 54; Pulse 96bpm; Resp 18bpm; Pulse Ox 99% RA; hb tw2
--- NOTE | 2017-07-05 15:51 | EDPHYS ---
Physician Documentation [facility] Name: Iliana Bennett Age: 67 yrs Sex: Female : 1950 Arrival Date: 07/05/2017 Time: 12:33 Bed 3 Private MD: ED Physician Ignacio Reyna HPI: 07/05 13:21 This 67 yrs old Female presents to ER via EMS with complaints of fever. jr8 13:21 The patient reports fever, with an emergency department temperature of 101.4 degrees jr8 Fahrenheit. Onset: The symptoms/episode began/occurred acutely, today. Modifying factors: there are no obvious modifying factors. Associated signs and symptoms: Pertinent positives: seizure. Severity of symptoms: At their worst the symptoms were moderate in the emergency department the symptoms are unchanged. It is unknown whether or not the patient has had similar symptoms in the past. The patient has not recently seen a physician. EMS stated that they were called out to [place] for seizures earlier today. senior care disregarded them. Patient with well known seizure history. Was called back for another seizure but with low saturation. EMS noted patient to not be postictal and not currently seizing. Did note that patient has fever. Patient A\T\o x1. Baseline for patient . Historical: - Allergies: 13:12 Ativan; hb 13:12 Benadryl; hb 13:12 Talwin NX; hb 13:12 Demerol; hb - Home Meds: 13:12 Keppra 500 mg Oral tab [Active]; magnesium oxide 400 mg Oral cap [Active]; melatonin 3 hb mg Oral tab [Active]; - PMHx: 13:12 Dementia; Hyperlipidemia; Seizures; hb - Immunization history:: Adult Immunizations up to date. - Social history:: Smoking status: Patient/guardian denies using tobacco. ROS: 13:21 Unable to obtain ROS due to baseline dementia. jr8 Exam: 13:21 Eyes: Pupils equal round and reactive to light, extra-ocular motions intact. Lids and jr8 lashes normal. Conjunctiva and sclera are non-icteric and not injected. Cornea within normal limits. Periorbital areas with no swelling, redness, or edema. ENT: Nares patent. No nasal discharge, no septal abnormalities noted. Tympanic membranes are normal and external auditory canals are clear. Oropharynx with no redness, swelling, or masses, exudates, or evidence of obstruction, uvula midline. Mucous membranes moist. Neck: Trachea midline, no thyromegaly or masses palpated, and no cervical lymphadenopathy. Supple, full range of motion without nuchal rigidity, or vertebral point tenderness. No Meningismus. Cardiovascular: Regular rate and rhythm with a normal S1 and S2. No gallops, murmurs, or rubs. Normal PMI, no JVD. No pulse deficits. Respiratory: Lungs have equal breath sounds bilaterally, clear to auscultation and percussion. No rales, rhonchi or wheezes noted. No increased work of breathing, no retractions or nasal flaring. Abdomen/GI: Soft, non-tender, with normal bowel sounds. No distension or tympany. No guarding or rebound. No evidence of tenderness throughout. Back: No spinal tenderness. No costovertebral tenderness. Full range of motion. Skin: Warm, dry with normal turgor. Normal color with no rashes, no lesions, and no evidence of cellulitis. MS/ Extremity: Pulses equal, no cyanosis. Neurovascular intact. Full, normal range of motion. 13:21 Neuro: Orientation: to person, Mentation: slow to respond, confused, Memory: is normal, Cranial nerves: extraocular movements are intact, Speech is clear and appropriate. Motor: moves all fours, Sensation: no obvious gross deficits, Gait: not tested. seizure activity, is not displayed by the patient, Abnormal movements: there are no abnormal movements. Vital Signs: 13:08 Weight 43.09 kg (R); tw2 13:08 BP 126 / 59; Pulse 100; Resp 17; Temp 100.2(TE); Pulse Ox 97% on R/A; tw2 13:08 Temp 101.4(C); tw2 13:45 Pulse 170; Pulse Ox 66% ; hb 13:50 Pulse Ox 97% on 15% Non-rebreather mask; hb 14:11 BP 106 / 63; Pulse 107; Resp 16; Pulse Ox 97% on 3 lpm NC; hb 14:58 BP 126 / 63; Pulse 88; Resp 16; Pulse Ox 97% on 3 lpm NC; hb 15:26 BP 123 / 54; Pulse 85; Resp 16; Temp 100(C); Pulse Ox 95% on R/A; tw2 16:30 BP 118 / 62; Pulse 90; Resp 16; Pulse Ox 100% on R/A; hb Sharla Coma Score: 13:09 Eye Response: to voice(3). Verbal Response: confused(4). Motor Response: localizes tw2 pain(5). Total: 12. 13:09 this is pts baseline tw2 MDM: 12:34 Patient medically screened. [facility] 13:57 ED course: Patient had about a 45 second seizure. postictal at this time. jr8 Hemodynamically stable . 14:29 Data reviewed: vital signs, nurses notes, lab test result(s), EKG, radiologic studies, jr8 plain films, and as a result, I will admit patient. Data interpreted: Pulse oximetry: on room air is 97 %. Interpretation: normal. Counseling: I had a detailed discussion with the patient and/or guardian regarding: the historical points, exam findings, and any diagnostic results supporting the discharge/admit diagnosis, lab results, radiology results, the need for further work-up and treatment in the hospital. Physician consultation: Toni Mcneil MD was called at 14:29, was contacted at 14:29, regarding consult, patient's condition, and will see patient in inpatient room. 15:47 ED course: Discussed case with Dr. Herrmann. Will see patient . 07/05 12:36 Order name: Urine Culture 07/05 12:36 Order name: Urine Microscopic Only; Complete Time: 15:11 07/05 12:36 Order name: Basic Metabolic Panel; Complete Time: 13:36 07/05 12:36 Order name: Blood Culture Adult (2) 07/05 12:36 Order name: BNP; Complete Time: 13:53 07/05 12:36 Order name: CBC with Diff; Complete Time: 13:53 07/05 12:36 Order name: CPK; Complete Time: 13:36 07/05 12:36 Order name: Lactate; Complete Time: 13:36 07/05 12:36 Order name: LFT's; Complete Time: 13:36 07/05 12:36 Order name: Lipase; Complete Time: 13:36 07/05 12:36 Order name: Procalcitonin; Complete Time: 13:53 jr07/05 12:36 Order name: Protime (+inr); Complete Time: 13:26 [facility] 07/05 12:36 Order name: Troponin (emerg Dept Use Only); Complete Time: 13:36 [facility] 07/05 13:25 Order name: CBC Smear Scan [facility] 07/05 12:36 Order name: Chest Single View XRAY; Complete Time: 15:36 [facility] 07/05 12:36 Order name: Accucheck; Complete Time: 13:10 [facility] 07/05 12:36 Order name: Cardiac monitoring; Complete Time: 13:10 [facility] 07/05 12:36 Order name: EKG - Nurse/Tech; Complete Time: 13:10 [facility] 07/05 12:36 Order name: IV Saline Lock - Large Bore; Complete Time: 13:11 [facility] 07/05 12:36 Order name: Labs collected and sent; Complete Time: 13:11 [facility] 07/05 12:36 Order name: O2 Per Protocol; Complete Time: 13:11 [facility] 07/05 13:47 Order name: Manual Differential; Complete Time: 13:53 [facility] 07/05 14:35 Order name: Urine Dipstick--Ancillary (enter results); Complete Time: 17:09 07/05 15:12 Order name: Flu; Complete Time: 15:44 [facility] 07/05 15:54 Order name: CONS Physician Consult [facility] 07/05 17:30 Order name: CT; Complete Time: 17:34 [facility] 07/05 12:36 Order name: O2 Sat Monitoring; Complete Time: 13:11 [facility] 07/05 12:36 Order name: Urine Dipstick-Ancillary (obtain specimen); Complete Time: 14:38 [facility] 07/05 13:11 Order name: Larson; Complete Time: 13:11 hb Administered Medications: 13:00 Drug: NS 0.9% (30 ml/kg) 30 ml/kg Route: IV; Rate: bolus; Site: left forearm; hb 14:36 Follow up: Response: No adverse reaction; IV Status: Completed infusion hb 13:00 Drug: Tylenol Suppository 650 mg Route: AL; tw2 14:00 Follow up: Response: No adverse reaction; Temperature is decreased hb 14:36 Drug: Keppra 1000 mg Route: IV; Rate: calculated rate; Site: left forearm; hb 14:59 Follow up: Response: No adverse reaction; IV Status: Completed infusion hb 14:36 Drug: Rocephin - (cefTRIAXone) 1 grams Route: IVPB; Infused Over: 30 mins; Site: left hb forearm; Disposition: 07/06 09:20 Co-signature as Attending Physician, Ignacio Reyna MD I agree with the assessment and tacos plan of care. Disposition: 07/05/17 15:50 Hospitalization ordered by Hamlet Herrmann for Inpatient Admission. Preliminary diagnosis are Fever, unspecified, Epilepsy and recurrent seizures. - Bed requested for Telemetry/MedSurg (Inpatient). - Status is Inpatient Admission. hb - Condition is Fair. - Problem is new. - Symptoms have improved. UTI on Admission? No Signatures: Dispatcher [employer] EDMS Ignacio Reyna MD MD cha Roszak, Josh, PA PA jr8 Dinora Yadav Heather RN RN Ghislaine Castro RN RN tw2 Corrections: (The following items were deleted from the chart) 07/05 16:39 15:50 Hospitalization Ordered by Hamlet Herrmann MD for Inpatient Admission. ag Preliminary diagnosis is Fever, unspecified; Epilepsy and recurrent seizures. Bed requested for Telemetry/MedSurg (Inpatient). Status is Inpatient Admission. Condition is Fair. Problem is new. Symptoms have improved. UTI on Admission? No. jr8 17:43 16:39 07/05/2017 15:50 Hospitalization Ordered by Hamlet Herrmann MD for Inpatient hb Admission. Preliminary diagnosis is Fever, unspecified; Epilepsy and recurrent seizures. Bed requested for Telemetry/MedSurg (Inpatient). Status is Inpatient Admission. Condition is Fair. Problem is new. Symptoms have improved. UTI on Admission? No. ag
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
[2017-07-05] MEDS ORDERED: LORazepam 2 MG/ML VIAL IV PRN (16:22)
[2017-07-05 17:09] LABS: Urine Blood 1+ (NEG); Urine Glucose NEGATIVE (NEG); Urine Protein 1+ (NEG); Urine Specific Gravity 1.025 (1.005-1.030)
--- NOTE | 2017-07-05 17:30 | RAD REPORT ---
EXAM DESCRIPTION: CT - Head Brain Wo Cont - 07/05/2017 5:01 pm CLINICAL HISTORY: Seizure COMPARISON: October 2016 TECHNIQUE: Computed axial tomography of the head was obtained. IV contrast was not requested. All CT scans are performed using dose optimization technique as appropriate and may include automated exposure control or mA/KV adjustment according to patient size. FINDINGS: An acute i a ntracranial bleed is not seen . The ventricles are normal in caliber. Fluid collections along the temporal fossa bilaterally are unchanged compatible with arachnoid cyst. Low-density within the right temporal lobe is stable which may be the sequela of an old infarction or old bleed. Right craniotomy is noted. . Mild fluid is present within the sinuses which may indicate an acute sinusitis IMPRESSION: No acute intracranial abnormality is seen. If patient's symptoms persist MRI of the bra in would be recommended. Mild fluids within the sinuses may indicate an acute sinusitis
[2017-07-05] MEDS: D5 0.45 NS 1,000 ML IV SCH ×2 (17:51→22:15)
[2017-07-05 18:26] VITALS: BMI 20.8
[2017-07-05] MEDS: levETIRAcetam 500 MG TAB PO SCH (21:00)
--- NOTE | 2017-07-05 22:39 | P.PN ---
Subjective Date of Service: 07/05/17 Chief Complaint: Possible seizures Physical Examination - Vital Signs Temperature: 99.6 F Blood Pressure: 157/70 Pulse: 104 Respirations: 18 Pulse Ox (%): 94 - Studies Laboratory Data (last 24 hrs) 07/05/17 12:50: PT 12.6 H, INR 1.07 07/05/17 12:50: WBC 7.9, Hgb 12.4, Hct 37.1, Plt Count 282 07/05/17 12:50: B-Natriuretic Peptide 71 07/05/17 12:50: Sodium 135, Potassium 3.3 L, BUN 19, Creatinine 0.65, Glucose 117, Total Bilirubin 0.5, AST 28, ALT 16, Alkaline Phosphatase 90, Lipase 23 Microbiology Data (last 24 hrs): 07/05/17 15:20 Nasopharnyx Influenza Type A Antigen Screen - Final 07/05/17 15:20 Nasopharnyx Influenza Type B Antigen Screen - Final Assessment & Plan - Problems (Diagnosis) (1) Cognitive and neurobehavioral dysfunction Current Visit: No Status: Chronic (2) Dementia Onset Date: 10/22/16 Current Visit: No Status: Chronic Qualifiers: Dementia type: unspecified type Dementia behavioral disturbance: with behavioral disturbance Qualified Code(s): F03.91 - Unspecified dementia with behavioral disturbance (3) Seizure disorder Onset Date: 10/22/16 Current Visit: No Status: Acute
[2017-07-05] MEDS ORDERED: ACETAMINOPHEN 650MG/RECT SUPP PR PRN (23:57)
[2017-07-06 03:44] VITALS: O2SAT 94
[2017-07-06 05:17] LABS: Hematocrit 33.5 % (36.0-45.0); MCH 28.5 pg (27.0-35.0); MPV 7.1 fL (7.6-11.3); RBC Red Blood Cell Count 3.89 M/uL (3.86-4.86)
[2017-07-06 06:03] LABS: ALT/SGPT 18 IU/L (10-60); AST/SGOT 30 IU/L (10-42); Albumin 3.3 g/dL (3.2-5.5); Alkaline Phosphatase 76 IU/L (42-121); BUN Blood Urea Nitrogen 15 mg/dL (6-20); Bicarbonate 24 mEq/L (21-31); Bilirubin Total 0.5 mg/dL (0.3-1.2); Glucose Level 90 mg/dL (65-120); Potassium 3.1 mEq/L (3.6-5.0); Sodium Level 137 mEq/L (135-145); Thyroid Stimulating Hormone 2.95 uIU/mL (0.34-5.60)
[2017-07-06] MEDS: levETIRAcetam 500 MG TAB PO SCH (08:47)
[2017-07-06] MEDS ORDERED: THIAMINE 200 MG/2 ML INJ IVP SCH (09:00)
[2017-07-06] MEDS ORDERED: CEFTRIAXONE/SWI 1gm 1 GM/10 ML SYR IVP SCH (09:00)
[2017-07-06 12:48] VITALS: BP 113/74; TEMP 98.5
--- NOTE | 2017-07-06 13:20 | P.DS ---
Admission Date: 07/05/17 Discharge Date: 07/06/17 Primary Care Provider: custodial Disposition: TRANSFER TO LONG TERM Discharge Condition: GOOD Reason for Admission: Possible seizures Consultations: Neurology-Dr. Mcneil - Problems (1) Cognitive and neurobehavioral dysfunction Current Visit: No Status: Chronic (2) Dementia Onset Date: 10/22/16 Current Visit: No Status: Chronic Qualifiers: Dementia type: unspecified type Dementia behavioral disturbance: with behavioral disturbance Qualified Code(s): F03.91 - Unspecified dementia with behavioral disturbance (3) Seizure disorder Onset Date: 10/22/16 Current Visit: No Status: Acute Brief History of Present Illness: 67-year-old female presented emergency room with fever. Patient evaluated in the emergency room. Chest x-ray unremarkable. No indication of infection is noted. This resolved. Patient did have as seizure. Patient with history of seizures with poor compliance at the long-term. Patient was admitted for observation. Hospital Course: During the course of her stay the patient did well. The patient received IV Keppra. Case discussed at length with Neurology. No further intervention is recommended. Compliance with her medications will need to be enforced. Will recheck Keppra level at this time. Patient will continue with Keppra 500 mg 1 pill twice daily. If levels come back low her medication may need to be increased to 750 mg twice daily. Compliance has been a major problem due to her psychiatric illness. Patient will continue with her other medications. Close follow up will be needed by the long-term physician. Pro calcitonin unremarkable. White count unremarkable. Chest x-ray showed no pneumonia. No UT identified. Fever likely related to patient using excessive bed sheets. This can be monitored. Vital Signs/Physical Exam: Temp Pulse Resp BP Pulse Ox 98.5 F 77 16 113/74 92 07/06/17 12:00 07/06/17 12:00 07/06/17 12:00 07/06/17 12:00 07/06/17 12:00 General: Alert, Demented HEENT: Atraumatic Neck: Supple Respiratory: Clear to auscultation bilaterally, Normal air movement Cardiovascular: Normal pulses, Regular rate/rhythm Gastrointestinal: Normal bowel sounds, Soft and benign, Non-distended Neurological: Abnormal affect (Patient with severe dementia and underlying psychiatric illness.), Dementia Laboratory Data at Discharge: WBC 8.7 K/uL (4.3-10.9) 05/21/18 04:26 Hgb 11.1 g/dL (12.0-15.0) L 07/06/17 04:26 Hct 33.5 % (36.0-45.0) L 07/06/17 04:26 Plt Count 256 K/uL (152-406) 07/06/17 04:26 PT 12.6 SECONDS (9.5-12.5) H 07/05/17 12:50 INR 1.07 07/05/17 12:50 Sodium 137 mEq/L (135-145) 07/06/17 04:26 Potassium 3.1 mEq/L (3.6-5.0) L 07/06/17 04:26 BUN 15 mg/dL (6-20) 07/06/17 04:26 Creatinine 0.63 mg/dL (0.44-1.00) 07/06/17 04:26 Glucose 90 mg/dL (65-120) 07/06/17 04:26 Total Bilirubin 0.5 mg/dL (0.3-1.2) 07/06/17 04:26 AST 30 IU/L (10-42) 07/06/17 04:26 ALT 18 IU/L (10-60) 07/06/17 04:26 Alkaline Phosphatase 76 IU/L (42-121) 07/06/17 04:26 B-Natriuretic Peptide 71 pg/ml (<=100) 07/05/17 12:50 Lipase 23 U/L (22-51) 07/05/17 12:50 Home Medications: Ensure Enlive 237 ml PO BID #60 can 03/16/17 Magnesium Oxide [Mag 0X*] 400 mg PO BID #60 tab 03/16/17 Melatonin [Melatonin*] 3 mg PO BEDTIME PRN PRN #30 tablet 03/16/17 Quetiapine [Seroquel*] 100 mg PO BEDTIME #30 tab 03/16/17 Levetiracetam [Keppra] 500 mg PO BID 07/06/17 Patient Discharge Instructions: 1. Patient will return to the long-term. 2. Patient with history of seizure disorder. Patient with noncompliance with medication. Recommendation is compliance with medication and close monitoring. Patient will continue with Keppra 500 mg 1 pill twice daily. This can be further adjusted by the long-term physician if required. Recommendations for the patient to follow up with neurology as outpatient to further monitor and address. Diet: AHA Activity: Fall precautions Time spent managing pt's care (in minutes): 55
--- NOTE | 2017-07-06 13:29 | EKG ---
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
[2017-07-06] MEDS ORDERED: levETIRAcetam 1,000 MG in NA CHLORIDE 0.9% 100 ML IV ONE (13:51)
[2017-07-06] MEDS ORDERED: QUETIAPINE 100MG TAB PO SCH (21:00)
[2017-07-06] MEDS ORDERED: MAGNESIUM OXIDE 400 MG TAB PO SCH (21:00)
[2017-07-06] MEDS ORDERED: levETIRAcetam 500 MG in NA CHLORIDE 0.9% 100 ML IV SCH (21:00)
[2017-07-06] MEDS ORDERED: ENSURE ENLIVE 237 ML CAN PO SCH (21:00)
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
== END 2017-07-06 16:59 | DRG 101 ==
LOC: ER 12:32 → SUPCPDRO 12:32 → ERHOLD 15:52 → 2ND 17:24
PROVIDERS: ADMIT Internal Medicine Sleep Medicine; ATTEND Internal Medicine Sleep Medicine
DX: G40.909 Epilepsy, unspecified, not intractable, without status epilepticus (principal); F03.90 Unspecified dementia, unspecified severity, without behavioral disturbance, psychotic disturbance, mood disturbance, and anxiety; Z91.14 Patient's other noncompliance with medication regimen; Z91.410 Personal history of adult physical and sexual abuse
CPT/HCPCS: 36415; 70450; 71045; 80048; 80053; 80076; 81003; 81015; 82550; 82607; 83605; 83690; 83880; 84145; 84443; 84484; 85025; 85027; 85610; 87040; 87086; 87088; 87804; 93005; 96365; 96367; 96375; 99285; J0696; J1953; J3411; J7030

== ENCOUNTER 2018-04-17 01:44 | Emergency (ER) | payer OTHER ==
--- OUTSIDE RECORDS SUMMARY | 2018-04-17 01:46 | XMS REPORT | Clinical Summary ---
:1950 Author Organization [facility] Address [address] [place] [address] Care Team Providers Name Role Phone Asked, No Pcp Primary Care Provider Unavailable Allergies Not on File Medications Not on file Active Problems Not on file Social History Tobacco Use Types Packs/Day Years Used Date Never Assessed Sex Assigned at Date Recorded Not on file Job Start Date Occupation Industry Not on file Not on file Not on file Travel History Travel Start Travel End No recent travel history available. Last Filed Vital Signs Not on file Plan of Treatment Health Maintenance Due Date Last Done Comments BREAST CANCER SCREENING 2000 COLON CANCER SCREENING 2000 SHINGLES VACCINES (#1) 2000 65+ PNEUMOCOCCAL VACCINE (1 of 2 - PCV13) 06/30/2015 PNEUMOCOCCAL POLYSACCHARIDE VACCINE AGE 65 AND OVER 06/30/2015 INFLUENZA VACCINE 09/16/2017 Results Not on fileafter 04/16/2017 Insurance Payer Benefit Plan / Group Subscriber ID Type Phone Address MEDICARE MEDICARE PART A AND B xxxxxxxxxx Medicare [place], [place] CIGNA CIGNA PPO xxxxxxxxxxx PPO Advance Directives Patient has advance care planning documents on file. For more information, please contact:[facility] [place] [address]
--- OUTSIDE RECORDS SUMMARY | 2018-04-17 01:46 | XMS REPORT | Clinical Summary ---
:1950 [facility] Address [address] [place] [address] Care Team Providers Name Role Phone Jessenia Primary Care Provider Allergies Active Allergy Reactions Severity Noted Date Comments Diphenhydramine Hcl Other (See Comments) High 08/29/2016 Unknown reaction Pentazocine Lactate Other (See Comments) High 08/29/2016 Hallucinations Medications Medication Sig Dispensed Refills Start Date End Date Status atorvastatin (LIPITOR) Take 1 tablet 30 tablet 0 09/03/2016 09/03/2017 10 MG tablet (10 mg total) by mouth nightly. Active Problems Problem Noted Date Eye infection, right 08/30/2016 Dementia 08/30/2016 Keratitis, right 08/30/2016 Hypokalemia 08/30/2016 Corneal ulcer, right 08/29/2016 Social History Tobacco Use Types Packs/Day Years Used Date Former Smoker Alcohol Use Drinks/Week oz/Week Comments No Sex Assigned at Date Recorded Not on file Job Start Date Occupation Industry Not on file Not on file Not on file Travel History Travel Start Travel End No recent travel history available. Last Filed Vital Signs Not on file Plan of Treatment Not on file Results Not on fileafter 04/16/2017 Insurance Payer Benefit Plan / Group Subscriber ID Type Phone Address [employer] - [facility] PPO xxxxxxxxxxx MEDICARE MEDICARE A B xxxxxxxxxx Medicare Advance Directives For more information, please contact:[facility] [address] [phone] Code Status Date Activated Date Inactivated Comments Full Code 08/30/2016 12:39 AM 09/04/2016 7:35 PM This code status was determined by: Patient
--- OUTSIDE RECORDS SUMMARY | 2018-04-17 01:46 | XMS REPORT ---
:1950 [facility] Address [address] [place] [address] Dr. Duran [address] [place] [id number] Care Team Providers Name Role Phone MIRELA APPLE Grace Unavailable Unavailable Problems This patient has no known problems. Allergies, Adverse Reactions, Alerts This patient has no known allergies or adverse reactions. Medications This patient has no known medications. Results Test Description Test Time Test Comments Text Results Atomic Results Result Comments BASIC METABOLIC PANEL 2016-09-04 08:00:00 Test Item Value Reference Range Comments SODIUM (BEAKER) (test 139 meq/L 136-145 yeqv=822) POTASSIUM (BEAKER) (test 3.7 meq/L 3.5-5.1 aazj=521) CHLORIDE (BEAKER) (test 104 meq/L 98-107 fnfs=613) CO2 (BEAKER) (test kkdb=602) 28 meq/L 22-29 BLOOD UREA NITROGEN (BEAKER) 11 mg/dL 7-21 (test ecfy=398) CREATININE (BEAKER) (test 0.73 mg/dL 0.57-1.25 agxz=792) GLUCOSE RANDOM (BEAKER) 99 mg/dL 70-105 (test pcrc=141) CALCIUM (BEAKER) (test 9.0 mg/dL 8.4-10.2 pxor=130) EGFR (BEAKER) (test 80 mL/min/1.73 sq m ESTIMATED GFR IS NOT xjly=7753) ACCURATE CREATININE CLEARANCE IN PREDICTING GLOMERULAR FILTRATION RATE. ESTIMATED GFR IS NOT APPLICABLE FOR DIALYSIS PATIENTS. CBC (HEMOGRAM ONLY)2016-09-04 07:16:00 Test Item Value Reference Range Comments WHITE BLOOD CELL COUNT (BEAKER) (test btnu=324) 7.4 K/ L 4.0-10.0 RED BLOOD CELL COUNT (BEAKER) (test nzdn=582) 3.78 M/ L 4.00-5.00 HEMOGLOBIN (BEAKER) (test nxhn=310) 12.3 GM/DL 12.0-15.0 HEMATOCRIT (BEAKER) (test rytz=505) 35.6 % 36.0-45.0 MEAN CORPUSCULAR VOLUME (BEAKER) (test gtrb=363) 94.2 fL 82.0-99.0 MEAN CORPUSCULAR HEMOGLOBIN (BEAKER) (test 32.6 pg 27.0-33.0 wmmv=537) MEAN CORPUSCULAR HEMOGLOBIN CONC (BEAKER) (test 34.6 GM/DL 32.0-36.0 ykdd=794) RED CELL DISTRIBUTION WIDTH (BEAKER) (test 11.3 % 10.3-14.2 yeel=583) PLATELET COUNT (BEAKER) (test brvx=285) 327 K/CU MM 150-430 MEAN PLATELET VOLUME (BEAKER) (test yuhp=684) 5.5 fL 6.5-10.5 NUCLEATED RED BLOOD CELLS (BEAKER) (test 0 /100 WBC 0-0 oolj=856) 0.00CBC (HEMOGRAM ONLY)2016-09-03 07:52:00 Test Item Value Reference Range Comments WHITE BLOOD CELL COUNT (BEAKER) (test ldoj=040) 6.1 K/ L 4.0-10.0 RED BLOOD CELL COUNT (BEAKER) (test dsgy=931) 4.10 M/ L 4.00-5.00 HEMOGLOBIN (BEAKER) (test anst=278) 12.7 GM/DL 12.0-15.0 HEMATOCRIT (BEAKER) (test cytq=931) 38.0 % 36.0-45.0 MEAN CORPUSCULAR VOLUME (BEAKER) (test rfig=826) 92.8 fL 82.0-99.0 MEAN CORPUSCULAR HEMOGLOBIN (BEAKER) (test 30.9 pg 27.0-33.0 xbxa=448) MEAN CORPUSCULAR HEMOGLOBIN CONC (BEAKER) (test 33.3 GM/DL 32.0-36.0 telj=901) RED CELL DISTRIBUTION WIDTH (BEAKER) (test 13.0 % 10.3-14.2 tkzi=358) PLATELET COUNT (BEAKER) (test wesk=224) 356 K/CU MM 150-430 MEAN PLATELET VOLUME (BEAKER) (test ljqm=190) 5.9 fL 6.5-10.5 NUCLEATED RED BLOOD CELLS (BEAKER) (test 0 /100 WBC 0-0 jqhx=059) 0.00BASIC METABOLIC [id number] 07:14:00 Test Item Value Reference Range Comments SODIUM (BEAKER) (test 141 meq/L 136-145 usdu=140) POTASSIUM (BEAKER) (test 3.7 meq/L 3.5-5.1 dsxk=968) CHLORIDE (BEAKER) (test 105 meq/L 98-107 siyi=200) CO2 (BEAKER) (test 28 meq/L 22-29 kklb=971) BLOOD UREA NITROGEN 10 mg/dL 7-21 (BEAKER) (test snoz=008) CREATININE (BEAKER) (test 0.69 mg/dL 0.57-1.25 tple=604) GLUCOSE RANDOM (BEAKER) 100 mg/dL 70-105 (test ojxd=451) CALCIUM (BEAKER) (test 9.7 mg/dL 8.4-10.2 kpgw=724) EGFR (BEAKER) (test 85 mL/min/1.73 sq m ESTIMATED GFR IS NOT yazb=2903) ACCURATE CREATININE CLEARANCE IN PREDICTING GLOMERULAR FILTRATION RATE. ESTIMATED GFR IS NOT APPLICABLE FOR DIALYSIS PATIENTS. BASIC METABOLIC [id number] 07:55:00 Test Item Value Reference Range Comments SODIUM (BEAKER) (test 140 meq/L 136-145 lycv=465) POTASSIUM (BEAKER) (test 3.8 meq/L 3.5-5.1 nprz=125) CHLORIDE (BEAKER) (test 106 meq/L 98-107 hbcx=033) CO2 (BEAKER) (test 24 meq/L 22-29 lngh=800) BLOOD UREA NITROGEN 12 mg/dL 7-21 (BEAKER) (test mgtx=204) CREATININE (BEAKER) (test 0.68 mg/dL 0.57-1.25 lvhn=025) GLUCOSE RANDOM (BEAKER) 97 mg/dL 70-105 (test shzf=077) CALCIUM (BEAKER) (test 9.3 mg/dL 8.4-10.2 jaif=240) EGFR (BEAKER) (test 87 mL/min/1.73 sq m ESTIMATED GFR IS NOT cwrz=6445) ACCURATE CREATININE CLEARANCE IN PREDICTING GLOMERULAR FILTRATION RATE. ESTIMATED GFR IS NOT APPLICABLE FOR DIALYSIS PATIENTS. CBC (HEMOGRAM ONLY)2016-09-02 07:46:00 Test Item Value Reference Range Comments WHITE BLOOD CELL COUNT (BEAKER) (test kywb=978) 6.6 K/ L 4.0-10.0 RED BLOOD CELL COUNT (BEAKER) (test zekc=963) 4.04 M/ L 4.00-5.00 HEMOGLOBIN (BEAKER) (test uxjh=072) 12.8 GM/DL 12.0-15.0 HEMATOCRIT (BEAKER) (test pden=246) 38.2 % 36.0-45.0 MEAN CORPUSCULAR VOLUME (BEAKER) (test louu=999) 94.5 fL 82.0-99.0 MEAN CORPUSCULAR HEMOGLOBIN (BEAKER) (test 31.7 pg 27.0-33.0 assq=926) MEAN CORPUSCULAR HEMOGLOBIN CONC (BEAKER) (test 33.6 GM/DL 32.0-36.0 xnon=136) RED CELL DISTRIBUTION WIDTH (BEAKER) (test 11.4 % 10.3-14.2 vksy=178) PLATELET COUNT (BEAKER) (test eden=487) 380 K/CU MM 150-430 MEAN PLATELET VOLUME (BEAKER) (test onub=579) 5.5 fL 6.5-10.5 NUCLEATED RED BLOOD CELLS (BEAKER) (test 0 /100 WBC 0-0 mbyi=781) [id number] 11:31:00 Test Item Value Reference Range Comments RPR SCREEN (BEAKER) (test tlqf=633) Nonreactive Nonreactive SEDIMENTATION [id number] 10:14:00 Test Item Value Reference Range Comments SEDIMENTATION RATE, ERYTHROCYTE (BEAKER) (test 36 mm/HR 0-40 lupt=482) HEMOGLOBIN [id number] 09:41:00 Test Item Value Reference Range Comments HEMOGLOBIN A1C (BEAKER) (test tnxt=520) 5.6 % 4.3-6.1 C-REACTIVE [id number] 09:01:00 Test Item Value Reference Range Comments C-REACTIVE PROTEIN (BEAKER) (test lynx=567) 0.93 mg/dL 0.00-0.50 CBC W/PLT COUNT & AUTO [id number] 06:46:00 Test Item Value Reference Range Comments WHITE BLOOD CELL COUNT (BEAKER) (test gkmq=436) 7.9 K/ L 4.0-10.0 RED BLOOD CELL COUNT (BEAKER) (test nxbz=062) 4.23 M/ L 4.00-5.00 HEMOGLOBIN (BEAKER) (test iqdy=988) 13.4 GM/DL 12.0-15.0 HEMATOCRIT (BEAKER) (test uhpd=744) 39.4 % 36.0-45.0 MEAN CORPUSCULAR VOLUME (BEAKER) (test ofue=601) 93.0 fL 82.0-99.0 MEAN CORPUSCULAR HEMOGLOBIN (BEAKER) (test 31.8 pg 27.0-33.0 iewc=766) MEAN CORPUSCULAR HEMOGLOBIN CONC (BEAKER) (test 34.2 GM/DL 32.0-36.0 usni=999) RED CELL DISTRIBUTION WIDTH (BEAKER) (test 11.3 % 10.3-14.2 dpwe=779) PLATELET COUNT (BEAKER) (test anie=942) 433 K/CU MM 150-430 MEAN PLATELET VOLUME (BEAKER) (test bksy=645) 5.5 fL 6.5-10.5 NUCLEATED RED BLOOD CELLS (BEAKER) (test 0 /100 WBC 0-0 jeny=460) NEUTROPHILS RELATIVE PERCENT (BEAKER) (test 63 % yqmi=019) LYMPHOCYTES RELATIVE PERCENT (BEAKER) (test 30 % keza=721) MONOCYTES RELATIVE PERCENT (BEAKER) (test 7 % crvw=877) EOSINOPHILS RELATIVE PERCENT (BEAKER) (test 1 % bfqt=727) BASOPHILS RELATIVE PERCENT (BEAKER) (test 0 % dczf=908) NEUTROPHILS ABSOLUTE COUNT (BEAKER) (test 4.91 K/ L 1.80-8.00 hwpz=775) LYMPHOCYTES ABSOLUTE COUNT (BEAKER) (test 2.32 K/ L 1.48-4.50 tfbh=673) MONOCYTES ABSOLUTE COUNT (BEAKER) (test 0.53 K/ L 0.00-1.30 tmyw=549) EOSINOPHILS ABSOLUTE COUNT (BEAKER) (test 0.07 K/ L 0.00-0.50 pupf=164) BASOPHILS ABSOLUTE COUNT (BEAKER) (test 0.02 K/ L 0.00-0.20 srsx=715) 0.00VITAMIN [id number] 06:33:00 Test Item Value Reference Range Comments VITAMIN B12 (BEAKER) (test crxj=316) 1205 pg/mL 213-816 TSH/FREE T4 IF [id number] 06:33:00 Test Item Value Reference Range Comments THYROID STIMULATING HORMONE (BEAKER) (test 1.73 uIU/mL 0.35-4.94 cfow=405) [id number] 06:28:00 Test Item Value Reference Range Comments PHOSPHORUS (BEAKER) (test vndt=940) 2.7 mg/dL 2.3-4.7 [id number] 06:28:00 Test Item Value Reference Range Comments MAGNESIUM (BEAKER) (test kxpa=724) 2.1 mg/dL 1.6-2.6 BASIC METABOLIC [id number] 06:28:00 Test Item Value Reference Range Comments SODIUM (BEAKER) (test 141 meq/L 136-145 twqg=677) POTASSIUM (BEAKER) (test 3.2 meq/L 3.5-5.1 mnjl=666) CHLORIDE (BEAKER) (test 103 meq/L 98-107 wfcs=527) CO2 (BEAKER) (test 26 meq/L 22-29 jorf=985) BLOOD UREA NITROGEN 19 mg/dL 7-21 (BEAKER) (test qgim=263) CREATININE (BEAKER) (test 0.68 mg/dL 0.57-1.25 dmio=167) GLUCOSE RANDOM (BEAKER) 87 mg/dL 70-105 (test fysw=791) CALCIUM (BEAKER) (test 9.7 mg/dL 8.4-10.2 gwwq=941) EGFR (BEAKER) (test 87 mL/min/1.73 sq m ESTIMATED GFR IS NOT hmjp=9444) ACCURATE CREATININE CLEARANCE IN PREDICTING GLOMERULAR FILTRATION RATE. ESTIMATED GFR IS NOT APPLICABLE FOR DIALYSIS PATIENTS. LIPID [id number] 06:28:00 Test Item Value Reference Range Comments TRIGLYCERIDES (BEAKER) (test sipg=050) 79 mg/dL CHOLESTEROL (BEAKER) (test vopx=402) 244 mg/dL HDL CHOLESTEROL (BEAKER) (test rgsm=128) 64 mg/dL LDL CHOLESTEROL CALCULATED (BEAKER) (test 164 mg/dL uaqn=911) Triglyceride Reference Range: Low Risk <150 Borderline 150- 199 High Risk 200-499 Very High Risk >=500Cholesterol Reference Range: Low Risk <200 Borderline 200-239 High Risk > 240HDL Cholesterol Reference Range: Low Risk >=60 High Risk <40LDL Cholesterol Reference Range: Optimal <100 Near Optimal 100-129 Borderline 130-159 High 160-189 Very High >=190HEPATIC FUNCTION [id number] 06:28:00 Test Item Value Reference Range Comments TOTAL PROTEIN (BEAKER) (test fxzz=434) 8.0 gm/dL 6.0-8.3 ALBUMIN (BEAKER) (test slci=7173) 4.4 g/dL 3.5-5.0 BILIRUBIN TOTAL (BEAKER) (test ixon=210) 0.7 mg/dL 0.2-1.2 BILIRUBIN DIRECT (BEAKER) (test rdga=905) 0.3 mg/dL 0.1-0.5 ALKALINE PHOSPHATASE (BEAKER) (test ljxa=681) 112 U/L 40-150 AST (SGOT) (BEAKER) (test eyjf=820) 19 U/L 5-34 ALT (SGPT) (BEAKER) (test ynjq=276) 11 U/L 6-55 CREATINE KINASE (CK), TOTAL AND [id number] 06:28:00 Test Item Value Reference Range Comments CREATINE KINASE TOTAL (BEAKER) (test pobc=663) 85 U/L 29-200 CREATINE KINASE-MB (BEAKER) (test rstu=413) 1.2 ng/mL 0.0-6.6 CREATINE KINASE-MB INDEX (BEAKER) (test zbte=579) 1.4 % Effective 01/03/2014: CK-MB Reference Range ChangeNew: 0.0-6.6 Previous: 0.0- 4.9CK-MB Reference Range:<6.7 Normal6.7-10.0 Borderline>10.0 AbnormalTROPONIN [id number] 06:11:00 Test Item Value Reference Range Comments TROPONIN I (BEAKER) (test lafm=318) < ng/mL 0.00-0.03 Effective 01/03/2014: Reference Range [...] acute neurological disease, and persistent tachyarrhythmia.BASIC METABOLIC [id number] 00:40:00 Test Item Value Reference Range Comments SODIUM (BEAKER) (test 139 meq/L 136-145 ukbw=374) POTASSIUM (BEAKER) (test 3.0 meq/L 3.5-5.1 nukj=270) CHLORIDE (BEAKER) (test 103 meq/L 98-107 ceqn=324) CO2 (BEAKER) (test 26 meq/L 22-29 qkyh=319) BLOOD UREA NITROGEN 19 mg/dL 7-21 (BEAKER) (test uyvd=718) CREATININE (BEAKER) (test 0.71 mg/dL 0.57-1.25 gyzx=413) GLUCOSE RANDOM (BEAKER) 95 mg/dL 70-105 (test qutc=120) CALCIUM (BEAKER) (test 9.4 mg/dL 8.4-10.2 cqrh=729) EGFR (BEAKER) (test mL/min/1.73 sq m INSUFFICIENT CLINICAL DATA ljia=3747) TO CALCULATE ESTIMATED GFR. CBC W/PLT COUNT & AUTO [id number] 23:58:00 Test Item Value Reference Range Comments WHITE BLOOD CELL COUNT (BEAKER) (test xdyd=000) 8.6 K/ L 4.0-10.0 RED BLOOD CELL COUNT (BEAKER) (test eyed=338) 4.15 M/ L 4.00-5.00 HEMOGLOBIN (BEAKER) (test essi=861) 12.9 GM/DL 12.0-15.0 HEMATOCRIT (BEAKER) (test ikxk=775) 38.7 % 36.0-45.0 MEAN CORPUSCULAR VOLUME (BEAKER) (test mviu=551) 93.2 fL 82.0-99.0 MEAN CORPUSCULAR HEMOGLOBIN (BEAKER) (test 31.1 pg 27.0-33.0 fbic=268) MEAN CORPUSCULAR HEMOGLOBIN CONC (BEAKER) (test 33.4 GM/DL 32.0-36.0 zonx=499) RED CELL DISTRIBUTION WIDTH (BEAKER) (test 11.3 % 10.3-14.2 cqmr=630) PLATELET COUNT (BEAKER) (test snux=212) 427 K/CU MM 150-430 MEAN PLATELET VOLUME (BEAKER) (test uhnv=334) 5.4 fL 6.5-10.5 NUCLEATED RED BLOOD CELLS (BEAKER) (test 0 /100 WBC 0-0 fzga=237) NEUTROPHILS RELATIVE PERCENT (BEAKER) (test 64 % mbcl=895) LYMPHOCYTES RELATIVE PERCENT (BEAKER) (test 28 % xlxq=923) MONOCYTES RELATIVE PERCENT (BEAKER) (test 7 % qtzq=607) EOSINOPHILS RELATIVE PERCENT (BEAKER) (test 1 % cead=444) BASOPHILS RELATIVE PERCENT (BEAKER) (test 0 % bxtg=620) NEUTROPHILS ABSOLUTE COUNT (BEAKER) (test 5.49 K/ L 1.80-8.00 pnor=380) LYMPHOCYTES ABSOLUTE COUNT (BEAKER) (test 2.40 K/ L 1.48-4.50 kiwu=036) MONOCYTES ABSOLUTE COUNT (BEAKER) (test 0.57 K/ L 0.00-1.30 jfvu=406) EOSINOPHILS ABSOLUTE COUNT (BEAKER) (test 0.05 K/ L 0.00-0.50 bdpf=718) BASOPHILS ABSOLUTE COUNT (BEAKER) (test 0.04 K/ L 0.00-0.20 vcrn=030) 0.00
[2018-04-17] MEDS ORDERED: LIDOCAINE 1% 20 ML MDV ONE (02:35)
--- NOTE | 2018-04-17 02:56 | EDPHYS ---
Physician Documentation [facility] Name: Iliana Bennett Age: 67 yrs Sex: Female : 1950 Arrival Date: 04/17/2018 Time: 01:47 Bed 17 Private MD: Ignacio Neumann HPI: 04/17 02:49 This 67 yrs old Female presents to ER via EMS with complaints of Wrist Injury.nc 02:49 The patient or guardian reports deformity, injury, pain. The complaints affect the nc right wrist diffusely. Context: The problem was sustained at a fdc or assisted living facility, resulted from a fall. Onset: The symptoms/episode began/occurred acutely, this morning. Modifying factors: The symptoms are alleviated by holding still, the symptoms are aggravated by movement. Associated signs and symptoms: The patient has no apparent associated signs or symptoms. The patient has not experienced similar symptoms in the past. Xray was done at fdc that showed fracture or right radius. Historical: - Allergies: 02:01 Benadryl; jd3 02:01 Talwin NX; jd3 02:01 Ativan; jd3 02:01 Demerol; jd3 - Home Meds: 02:01 Keppra 500 mg Oral tab [Active]; magnesium oxide 400 mg Oral cap [Active]; melatonin 3 jd3 mg Oral tab [Active]; Depakote Sprinkles 125 mg Oral cpSP [Active]; - PMHx: 02:01 Dementia; Hyperlipidemia; Seizures; jd3 - Immunization history:: Adult Immunizations unknown. - Social history:: Smoking status: unknown. - Ebola Screening: : Patient negative for fever greater than or equal to 101.5 degrees Fahrenheit, and additional compatible Ebola Virus Disease symptoms. ROS: 02:49 Constitutional: Negative for fever, chills, and weight loss, Eyes: Negative for injury, nh pain, redness, and discharge, ENT: Negative for injury, pain, and discharge, Neck: Negative for injury, pain, and swelling, Cardiovascular: Negative for chest pain, palpitations, and edema, Respiratory: Negative for shortness of breath, cough, wheezing, and pleuritic chest pain, Abdomen/GI: Negative for abdominal pain, nausea, vomiting, diarrhea, and constipation, Back: Negative for injury and pain, : Negative for injury, bleeding, discharge, and swelling, Skin: Negative for injury, rash, and discoloration. 02:49 MS/extremity: Positive for deformity, pain, swelling, tenderness. 02:49 Neuro: Positive for altered mental status. Exam: 02:49 Hand exam: Exam is positive for deformity, pain, swelling, tenderness, Circulation is nh intact in all extremities. sensation intact. 02:49 Constitutional: This is a well developed, well nourished patient who is awake, alert, and in no acute distress. Head/Face: Normocephalic, atraumatic. Eyes: Pupils equal round and reactive to light, extra-ocular motions intact. Lids and lashes normal. Conjunctiva and sclera are non-icteric and not injected. Cornea within normal limits. Periorbital areas with no swelling, redness, or edema. ENT: Nares patent. No nasal discharge, no septal abnormalities noted. Tympanic membranes are normal and external auditory canals are clear. Oropharynx with no redness, swelling, or masses, exudates, or evidence of obstruction, uvula midline. Mucous membranes moist. Neck: Trachea midline, no thyromegaly or masses palpated, and no cervical lymphadenopathy. Supple, full range of motion without nuchal rigidity, or vertebral point tenderness. No Meningismus. Chest/axilla: Normal chest wall appearance and motion. Nontender with no deformity. No lesions are appreciated. Cardiovascular: Regular rate and rhythm with a normal S1 and S2. No gallops, murmurs, or rubs. Normal PMI, no JVD. No pulse deficits. Respiratory: Lungs have equal breath sounds bilaterally, clear to auscultation and percussion. No rales, rhonchi or wheezes noted. No increased work of breathing, no retractions or nasal flaring. Abdomen/GI: Soft, non-tender, with normal bowel sounds. No distension or tympany. No guarding or rebound. No evidence of tenderness throughout. Back: No spinal tenderness. No costovertebral tenderness. Full range of motion. Skin: Warm, dry with normal turgor. Normal color with no rashes, no lesions, and no evidence of cellulitis. Vital Signs: 02:01 BP 120 / 78; Pulse 82; Resp 18 S; Temp 97.7(A); Pulse Ox 100% on R/A; Weight 52.16 kg jd3 (R); Height 5 ft. 3 in. (160.02 cm) (R); Pain 5/10; 03:19 BP 101 / 63; Pulse 73; Resp 16 S; Pulse Ox 100% on R/A; jd3 04:13 BP 103 / 76; Pulse 71; Resp 17 S; Pulse Ox 100% on R/A; jd3 05:08 BP 103 / 77; Pulse 72; Resp 16 S; Pulse Ox 99% on R/A; jd3 06:16 BP 96 / 68; Pulse 70; Resp 16 S; Pulse Ox 99% on R/A; jd3 02:01 Body Mass Index 20.37 (52.16 kg, 160.02 cm) jd3 Procedures: 02:49 Splinting: Splint applied to right wrist using sugar tong. Reduction: of the right nh wrist, using traction, manipulation, Patient tolerated well. Post reduction film - reveals improved alignment. MDM: 01:57 Patient medically screened. [facility] 02:49 Data reviewed: vital signs, nurses notes, fdc records, radiologic studies, I nc have discussed the patient's presentation/case with the attending Emergency Department Physician;. Counseling: I had a detailed discussion with the patient and/or guardian regarding: the historical points, exam findings, and any diagnostic results supporting the discharge/admit diagnosis, radiology results, the need for outpatient follow up, to return to the emergency department if symptoms worsen or persist or if there are any questions or concerns that arise at home. 02:55 Data reviewed: and as a result, I will discharge patient. nc 04/17 01:48 Order name: Wrist Right 2 View XRAY 04/17 02:48 Order name: Wrist Right 3 View XRAY nc 04/17 02:57 Order name: Splint - Sugar Tong - Forearm; Complete Time: 03:04 [facility] 04/17 02:57 Order name: Sling; Complete Time: 03:05 [facility] 04/17 02:58 Order name: Ice pack; Complete Time: 03:05 [facility] 04/17 02:58 Order name: Dressing - Wound; Complete Time: 03:04 [facility] 04/17 02:58 Order name: Gloves, Sterile; Complete Time: 03:04 [facility] 04/17 02:58 Order name: Setup Suture Tray; Complete Time: 03:04 [facility] Administered Medications: 02:45 Drug: Lidocaine-Epinephrine -1%: (1:100,000) 5 ml Volume: 20 ml; Route: Infiltration; jd3 06:22 Follow up: Response: No adverse reaction jd3 03:04 CANCELLED (Physician Discretion): Lidocaine (1 %) 20 ml 20 ml Infiltration once; to j bedside Disposition: 03:17 Co-signature as Attending Physician, Ignacio Reyna MD I agree with the assessment and tacos plan of care. Disposition: 04/17/18 02:56 Discharged to Long-Term. Impression: Displaced fracture of head of right radius. - Condition is Stable. - Discharge Instructions: Fall Prevention in the Home, Fall Prevention in Hospitals, Adult, Radial Fracture. - Prescriptions for acetaminophen- codeine 120-12 mg/5 mL Oral Suspension - take 5 milliliters by ORAL route every 4 hours As needed; 120 milliliter. - Medication Reconciliation Form, Thank You Letter, Antibiotic Education, Prescription Opioid Use form. - Follow up: Private Physician; When: 2 - 3 days; Reason: Recheck today's complaints. Follow up: Diego Francis MD; When: 2 - 3 days; Reason: Recheck today's complaints, Re-evaluation by your physician. - Problem is new. - Symptoms have improved. Signatures: Dispatcher [employer] Ignacio Kulkarni MD MD cha Cronk, Niki, COVER REMOVER COVER REMOVER Tate Harmon RN RN jd3 Corrections: (The following items were deleted from the chart) 03:04 02:48 Lidocaine (1 %) 20 ml 20 ml Infiltration once; to bedside ordered. jd3 jd3 03:04 02:49 Lidocaine (1 %) 20 ml 20 ml Infiltration once; to bedside given. jd3 jd3 03:04 03:03 Lidocaine (1 %) 20 ml 20 ml Infiltration once; to bedside ordered. jd3 jd3 03:16 02:56 04/17/2018 02:56 Discharged to Long-Term. Impression: Displaced fracture of tacos head of right radius. Condition is Stable. Forms are Medication Reconciliation Form, Thank You Letter, Antibiotic Education, Prescription Opioid Use. Follow up: Private Physician; When: 2 - 3 days; Reason: Recheck today's complaints. Problem is new. Symptoms have improved. nc 06:22 03:16 04/17/2018 02:56 Discharged to Long-Term. Impression: Displaced fracture of jd3 head of right radius. Condition is Stable. Discharge Instructions: Radial Fracture. Forms are Medication Reconciliation Form, Thank You Letter, Antibiotic Education, Prescription Opioid Use. Follow up: Private Physician; When: 2 - 3 days; Reason: Recheck today's complaints. Follow up: Diego Francis; When: 2 - 3 days; Reason: Recheck today's complaints, Re-evaluation by your physician. Problem is new. Symptoms have improved. tacos
--- NOTE | 2018-04-17 02:56 | ER ---
Nurse's Notes [facility] Name: Iliana Bennett Age: 67 yrs Sex: Female : 1950 Arrival Date: 04/17/2018 Time: 01:47 Bed 17 Private MD: Diagnosis: Displaced fracture of head of right radius Presentation: 04/17 01:53 Presenting complaint: EMS states: "she had a fall at 1630 yesterday evening at [address] with obvious deformity to the right wrist.". Transition of care: patient was not received from another setting of care. Onset of symptoms was April 16, 2018. Risk Assessment: Do you want to hurt yourself or someone else? Patient reports no desire to harm self or others. Initial Sepsis Screen: Does the patient meet any 2 criteria? No. Patient's initial sepsis screen is negative. Does the patient have a suspected source of infection? No. Patient's initial sepsis screen is negative. Care prior to arrival: None. 01:53 Method Of Arrival: EMS: [facility] 01:53 Acuity: MARIJA 3 jd3 Triage Assessment: 02:04 Injury Description: reported from EMS that pt fell an hurt right wrist. jd3 Historical: - Allergies: 02:01 Benadryl; jd3 02:01 Talwin NX; jd3 02:01 Ativan; jd3 02:01 Demerol; jd3 - Home Meds: 02:01 Keppra 500 mg Oral tab [Active]; magnesium oxide 400 mg Oral cap [Active]; melatonin 3 jd3 mg Oral tab [Active]; Depakote Sprinkles 125 mg Oral cpSP [Active]; - PMHx: 02:01 Dementia; Hyperlipidemia; Seizures; jd3 - Immunization history:: Adult Immunizations unknown. - Social history:: Smoking status: unknown. - Ebola Screening: : Patient negative for fever greater than or equal to 101.5 degrees Fahrenheit, and additional compatible Ebola Virus Disease symptoms. Screenin:04 Abuse screen: Denies threats or abuse. Nutritional screening: No deficits noted. jd3 Tuberculosis screening: No symptoms or risk factors identified. Fall Risk Fall in past 12 months (25 points). Ambulatory Aid- Crutches/Cane/Walker (15 pts). Gait- Weak (10 pts.). Mental Status- Overestimates/Forgets Limitations (15 pts.). Total Pepe Fall Scale indicates High Risk Score (45 or more points). Fall prevention measures have been instituted. Side Rails Up X 2 Placed Close to Nursing Station Frequent Obs/Assessments Occuring. Assessment: 02:02 General: Appears in no apparent distress. uncomfortable, Behavior is calm, cooperative. jd3 Pain: Complains of pain in right wrist Quality of pain is described as aching, tender. Neuro: Level of Consciousness is awake, alert, obeys commands, Oriented to person. Cardiovascular: Capillary refill < 3 seconds Patient's skin is warm and dry. Respiratory: Airway is patent Respiratory effort is even, unlabored, Respiratory pattern is regular, symmetrical. GI: No signs and/or symptoms were reported involving the gastrointestinal system. : No signs and/or symptoms were reported regarding the genitourinary system. EENT: No signs and/or symptoms were reported regarding the EENT system. Derm: Skin is intact, Skin is dry, Skin is normal, Skin temperature is warm. Musculoskeletal: Circulation, motion, and sensation intact. Range of motion: limited in right wrist. 02:45 Reassessment: provider at bedside assisting with splint placement. jd3 03:15 Reassessment: Patient appears in no apparent distress at this time. No changes from jd3 previously documented assessment. Patient and/or family updated on plan of care and expected duration. Pain level reassessed. report called to Manuela at [facility], was told [facility] is arraigning transfer. 03:28 Reassessment: [facility] reporting soonest a transport service will arrive will be jd3 around 0500. will continue to monitor pt. 04:13 Reassessment: Patient appears in no apparent distress at this time. Patient and/or d3 family updated on plan of care and expected duration. Pain level reassessed. pt resting in bed with eyes closed, even and unlabored respirations. 05:09 Reassessment: Patient appears in no apparent distress at this time. No changes from jd3 previously documented assessment. Patient and/or family updated on plan of care and expected duration. Pain level reassessed. 06:18 Reassessment: Patient appears in no apparent distress at this time. No changes from jd3 previously documented assessment. Patient and/or family updated on plan of care and expected duration. Pain level reassessed. Report given to [facility] service. Vital Signs: 02:01 BP 120 / 78; Pulse 82; Resp 18 S; Temp 97.7(A); Pulse Ox 100% on R/A; Weight 52.16 kg jd3 (R); Height 5 ft. 3 in. (160.02 cm) (R); Pain 5/10; 03:19 BP 101 / 63; Pulse 73; Resp 16 S; Pulse Ox 100% on R/A; jd3 04:13 BP 103 / 76; Pulse 71; Resp 17 S; Pulse Ox 100% on R/A; jd3 05:08 BP 103 / 77; Pulse 72; Resp 16 S; Pulse Ox 99% on R/A; jd3 06:16 BP 96 / 68; Pulse 70; Resp 16 S; Pulse Ox 99% on R/A; jd3 02:01 Body Mass Index 20.37 (52.16 kg, 160.02 cm) jd3 ED Course: 01:47 Patient arrived in ED. 01:52 Tate Osman RN is Primary Nurse. jd3 01:54 Catherine Puente FNP is PHCP. [place] 01:54 Ignacio Reyna MD is Attending Physician. [place] 01:57 Triage completed. jd3 02:02 Arm band placed on. jd3 02:05 Patient has correct armband on for positive identification. Bed in low position. Call jd3 light in reach. Side rails up X2. 02:20 Wrist Right 2 View XRAY In Process Unspecified. EDMS 02:46 Orthoglass splint: Sugar tong splint applied on right arm. jd3 03:12 Wrist Right 3 View XRAY In Process Unspecified. EDMS 03:16 Diego Francis MD is Referral Physician. [facility] 06:16 No provider procedures requiring assistance completed. Patient did not have IV access jd3 during this emergency room visit. Administered Medications: 02:45 Drug: Lidocaine-Epinephrine -1%: (1:100,000) 5 ml Volume: 20 ml; Route: Infiltration; jd3 06:22 Follow up: Response: No adverse reaction jd3 03:04 CANCELLED (Physician Discretion): Lidocaine (1 %) 20 ml 20 ml Infiltration once; to jd3 bedside Outcome: 02:56 Discharge ordered by . [place] 06:17 [facility] Report called to Manuela REEScobbler sole form completed. jd3 06:17 Condition: stable 06:17 Discharge instructions given to prison, EMS, Instructed on discharge instructions, follow up and referral plans. medication usage, Demonstrated understanding of instructions, follow-up care, medications. 06:22 Patient left the ED. jd3 Signatures: Dispatcher [employer] EDMS Ignacio Reyna MD MD cha Cronk, Niki, WORKERS COMPENSATION CONSULTANT WORKERS COMPENSATION CONSULTANT Elisabeth Khan RN RN Tate Amaral RN RN jd3 Corrections: (The following items were deleted from the chart) 03:03 02:45 Lidocaine (1 %) 20 ml 20 ml Infiltration 20 ml jd3 jd3
[2018-04-17 06:27] VITALS: TEMP 97.7
[2018-04-17 06:30] VITALS: O2SAT 99
[2018-04-17 06:31] VITALS: BP 96/68
--- NOTE | 2018-04-17 08:29 | RAD REPORT ---
EXAM DESCRIPTION: RAD - Wrist Right 3 View - 04/17/2018 3:13 am CLINICAL HISTORY: Right wrist pain status post injury FINDINGS: A splint immobilizes the previously described fractures of the distal radius and ulna.
--- NOTE | 2018-04-17 08:32 | RAD REPORT ---
EXAM DESCRIPTION: RAD - Wrist Right 2 View - 04/17/2018 2:21 am CLINICAL HISTORY: Right wrist pain status post injury FINDINGS: Comminuted impacted moderately displayed fracture involves the distal radius. Nondisplaced fracture of the distal ulna is present. No dislocation seen
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
== END 2018-04-17 06:22 ==
LOC: ER 01:44
PROC: 0PSHXZZ Reposition Right Radius, External Approach (ICD-10-PCS; principal; 2018-04-17)
DX: S52.121A Displaced fracture of head of right radius, initial encounter for closed fracture (principal); W19.XXXA Unspecified fall, initial encounter; Y93.9 Activity, unspecified; Y92.129 Unspecified place in nursing home as the place of occurrence of the external cause; Z88.5 Allergy status to narcotic agent; Z88.8 Allergy status to other drugs, medicaments and biological substances; E78.5 Hyperlipidemia, unspecified; G40.909 Epilepsy, unspecified, not intractable, without status epilepticus; F03.90 Unspecified dementia, unspecified severity, without behavioral disturbance, psychotic disturbance, mood disturbance, and anxiety
CPT/HCPCS: 99284